=== PATIENT | female | born 1940 | race Caucasian/White ===

== ENCOUNTER 2017-09-13 08:38 | Inpatient (IN) | payer MEDICARE ==
[2017-09-13] MEDS ORDERED: PANTOPRAZOLE 40 MG/10 ML VIAL IVP STA (08:55)
[2017-09-13 09:16] LABS: Anisocytosis Slight; Basophils % (A) 0 %; Eosinophils # (A) 0.1 k/uL (0-0.7); Eosinophils % (A) 1 %; Hypochromasia Moderate; Lymphocytes # (A) 0.7 k/uL (1.0-4.8); Lymphocytes % (A) 8 %; MCH 24.5 pg (25.0-35.0); Mean Platelet Volume 6.7; Microcytosis Slight; Monocytes # (A) 0.5 k/uL (0-1.0); Monocytes % (A) 6 %; Neutrophils # (A) 7.6 k/uL (1.3-7.7); Neutrophils % (A) 84 %; Platelet Count 593 k/uL (150-450); Poikilocytosis Slight; RBC 2.19 m/uL (3.80-5.40); RDW 19.9 % (11.5-15.5); WBC 9.1 k/uL (3.8-10.6)
--- NOTE | 2017-09-13 09:21 | ED ---
General Adult HPI - General Chief complaint: GI Bleed Stated complaint: Black Stool Time Seen by Provider: 09/13/17 08:51 Source: patient, family, RN notes reviewed Mode of arrival: wheelchair Limitations: no limitations - History of Present Illness Initial comments: Patient is a pleasant 77-year-old female presenting to the emergency department with dark stool. Patient had 2 episodes yesterday and another episode this morning. Patient has been fatigued and generally weak. Patient has been somewhat short of breath. Patient does have a history of similar episode around 4 years ago associated with ulcer. Patient received blood transfusion at that time. No abdominal pain. No fever. - Related Data Home Medications Medication Instructions Recorded Confirmed Lisinopril-Hctz 20-25 mg 1 tab PO DAILY 04/07/14 09/13/17 [Zestoretic 20-25] rOPINIRole HCL [Requip] 2 mg PO HS 04/07/14 09/13/17 Aspirin [Adult Low Dose Aspirin EC] 81 mg PO DAILY PRN 09/13/17 09/13/17 Calcium Carbonate [Calcium] 600 mg PO DAILY 09/13/17 09/13/17 Multivitamins, Thera [Multivitamin 1 tab PO DAILY 09/13/17 09/13/17 (formulary)] Allergies Allergy/AdvReac Type Severity Reaction Status Date / Time Penicillins Allergy Unknown Verified 09/13/17 09:03 Review of Systems ROS Statement: Those systems with pertinent positive or pertinent negative responses have been documented in the HPI. ROS Other: All systems not noted in ROS Statement are negative. Constitutional: Denies: fever, chills Eyes: Denies: eye pain ENT: Denies: ear pain Respiratory: Denies: cough Cardiovascular: Denies: chest pain Endocrine: Reports: fatigue Gastrointestinal: Reports: melena. Denies: abdominal pain Genitourinary: Denies: dysuria Musculoskeletal: Denies: back pain Skin: Denies: rash Neurological: Denies: headache Past Medical History Past Medical History: Blood Disorder, Hypertension, Vascular Disorder Additional Past Medical History / Comment(s): anemia and vericose veins History of Any Multi-Drug Resistant Organisms: None Reported Past Surgical History: No Surgical Hx Reported Past Anesthesia/Blood Transfusion Reactions: No Reported Reaction Past Psychological History: Anxiety Smoking Status: Former smoker Past Alcohol Use History: Occasional Past Drug Use History: None Reported General Exam Limitations: no limitations General appearance: alert, in no apparent distress Head exam: Present: atraumatic Eye exam: Present: normal appearance, PERRL ENT exam: Present: normal oropharynx Neck exam: Present: normal inspection Respiratory exam: Present: normal lung sounds bilaterally Cardiovascular Exam: Present: regular rate, normal rhythm GI/Abdominal exam: Present: soft. Absent: distended, tenderness Rectal exam: Present: black stool (RN Gia is present) Extremities exam: Present: normal inspection Neurological exam: Present: alert Psychiatric exam: Present: normal affect, normal mood Skin exam: Present: normal color Course Vital Signs 09/13/17 09/13/17 08:40 09:19 Temperature 98.1 F Pulse Rate 105 H 72 Respiratory 20 16 Rate Blood Pressure 103/52 97/50 O2 Sat by Pulse 99 99 Oximetry EKG Findings - EKG Comments: EKG Findings:: Normal sinus rhythm 94. HI 168. QRS 1:30. QTC 416. QTC 520. Normal axis. Nonspecific intraventricular block. Q waves V1 and V2. Inferior Q waves. No acute ST change. Medical Decision Making - Medical Decision Making Patient reevaluated. Patient and family updated. Case discussed in detail with practitioner Ankit, who will admit for Dr. Moreno, covering for hospital call. Blood transfusion ordered. - Lab Data Result diagrams: 09/13/17 08:55 09/13/17 08:55 Lab Results 09/13/17 09/13/17 09/13/17 Range/Units 08:55 08:55 09:15 WBC 9.1 (3.8-10.6) k/uL RBC 2.19 L (3.80-5.40) m/uL Hgb 5.4 L* (11.4-16.0) gm/dL Hct 17.3 L* (34.0-46.0) % MCV 79.0 L (80.0-100.0) fL MCH 24.5 L (25.0-35.0) pg MCHC 31.0 (31.0-37.0) g/dL RDW 19.9 H (11.5-15.5) % Plt Count 593 H (150-450) k/uL Neutrophils % 84 % Lymphocytes % 8 % Monocytes % 6 % Eosinophils % 1 % Basophils % 0 % Neutrophils # 7.6 (1.3-7.7) k/uL Lymphocytes # 0.7 L (1.0-4.8) k/uL Monocytes # 0.5 (0-1.0) k/uL Eosinophils # 0.1 (0-0.7) k/uL Basophils # 0.0 (0-0.2) k/uL Manual Slide Review Performed Polychromasia Present Hypochromasia Moderate Poikilocytosis Slight Anisocytosis Slight Microcytosis Slight Spherocytes Present Sodium 138 (137-145) mmol/L Potassium 3.2 L (3.5-5.1) mmol/L Chloride 97 L (98-107) mmol/L Carbon Dioxide 27 (22-30) mmol/L Anion Gap 14 mmol/L BUN 16 (7-17) mg/dL Creatinine 0.62 (0.52-1.04) mg/dL Est GFR (CKD-EPI)AfAm >90 (>60 ml/min/1.73 sqM) Est GFR (CKD-EPI)NonAf 88 (>60 ml/min/1.73 sqM) Glucose 108 H (74-99) mg/dL Calcium 8.9 (8.4-10.2) mg/dL Total Bilirubin 0.3 (0.2-1.3) mg/dL AST 33 (14-36) U/L ALT 28 (9-52) U/L Alkaline Phosphatase 54 (38-126) U/L Total Protein 5.7 L (6.3-8.2) g/dL Albumin 3.5 (3.5-5.0) g/dL Stool Occult Blood Positive H (Negative) - Radiology Data Radiology results: image reviewed (Chest x-ray shows intrathoracic stomach otherwise no acute abnormality.) Critical Care Time Critical Care Time: Yes Total Critical Care Time: 33 Disposition Clinical Impression: Gastrointestinal hemorrhage Disposition: ADMITTED IP TO THIS [facility] Condition: Serious Is patient prescribed a controlled substance at d/c from ED?: No Referrals: Sugar Whalen DO [Primary Care Provider] - 1-2 days Decision Time: 09:50
[2017-09-13 09:25] LABS: ALT 28 U/L (9-52); AST 33 U/L (14-36); Albumin 3.5 g/dL (3.5-5.0); Alkaline Phosphatase 54 U/L (38-126); Anion Gap 14 mmol/L; Blood Urea Nitrogen 16 mg/dL (7-17); Calcium 8.9 mg/dL (8.4-10.2); Carbon Dioxide 27 mmol/L (22-30); Chloride 97 mmol/L (98-107); Glucose 108 mg/dL (74-99); Potassium 3.2 mmol/L (3.5-5.1); Sodium 138 mmol/L (137-145); Total Bilirubin 0.3 mg/dL (0.2-1.3); Total Protein 5.7 g/dL (6.3-8.2)
[2017-09-13 09:27] LABS: HCT 17.3 % (34.0-46.0)
[2017-09-13 09:28] LABS: HGB 5.4 gm/dL (11.4-16.0)
--- NOTE | 2017-09-13 09:35 | XR ---
EXAMINATION TYPE: XR chest 2V DATE OF EXAM: 09/13/2017 COMPARISON: NONE HISTORY: Shortness of breath and weakness for 5 days TECHNIQUE: Frontal and lateral views of the chest are obtained. FINDINGS: There is no focal air space opacity, pleural effusion, or pneumothorax seen. The stomach a ppears largely intrathoracic The cardiac silhouette size is enlarged. The osseous structures are in tact. Is generalized osseous demineralization, mild degenerative changes of the thoracic spine and mo derate acromioclavicular arthropathy. IMPRESSION: No acute cardiopulmonary process. Largely intrathoracic stomach.
[2017-09-13 09:40] LABS: Polychromasia Present
[2017-09-13 09:42] LABS: Spherocytes Present
[2017-09-13] MEDS ORDERED: NALOXONE 0.4 MG/ML 1 ML VIAL IV PRN (09:47)
[2017-09-13 09:48] LABS: Creatine Kinase MB 2.4 ng/mL (0.0-2.4); Prothrombin Time 9.7 sec (9.0-12.0)
[2017-09-13 09:51] LABS: Partial Thromboplastin Time 18.5 sec (22.0-30.0)
[2017-09-13 09:55] LABS: Troponin I 0.177 ng/mL (0.000-0.034)
[2017-09-13] MEDS: SODIUM CHLORIDE 0.9% 1,000 ML IV SCH (10:06)
[2017-09-13 10:27] LABS: Amorphous Sediment,Urine Rare /hpf; Appearance,Urine Cloudy (Clear); Bacteria,Urine Rare /hpf; Bilirubin,Urine Negative (Negative); Blood,Urine Negative (Negative); Color,Urine Yellow; Glucose,Urine (UA) Negative (Negative); Hyaline Casts,Urine 16 /lpf (0-2); Ketones,Urine Negative (Negative); Leukocyte Esterase,Urine Large (Negative); Mucus,Urine Rare /hpf; Nitrite,Urine Negative (Negative); Protein,Urine Trace (Negative); Specific Gravity,Urine 1.014 (1.001-1.035); Squamous Epithelial Cell,Urine 2 /hpf (0-4); WBC,Urine 18 /hpf (0-5)
[2017-09-13 10:48] VITALS: BMI 28.0
--- NOTE | 2017-09-13 12:24 | P.CONS ---
History of Present Illness - Reason for Consult Consult date: 09/13/17 GI bleed Requesting physician: Indira Moreno - History of Present Illness 77-year-old female with a past medical history of bleeding duodenal ulcer in 2013 presents with acute melena that started yesterday with associated fatigue weakness. She's had 3 to 4 black colored bowel movements since yesterday afternoon. Denies abdominal pain or coffee-ground emesis. Afebrile. Home medications include baby aspirin. She did take a dose of Aleve yesterday morning but does not take that medication on a daily basis. Last colonoscopy 2015 at [facility] to her memory was unremarkable. Admission hemoglobin 5.4. MCV 79. Platelet 593. White count 9.1. INR 1.0. BUN 16. Creatinine 0.6. She is scheduled to receive 2 units of blood today. Review of Systems Constitutional: Denies fever, chills, sweats, weight gain, or loss. Increased fatigue weakness. HEENT: Negative for migraines, blurred vision or loss, earaches, drainage, tinnitus, oral mucosal lesions, dysphagia, or odynophagia. CARDIAC: Negative for chest pain, arrhythmias, or palpitation. RESPIRATORY: Negative for shortness of breath, hemoptysis, cough, or sputum production. GI: See HPI for pertinent findings. : Negative for hematuria, urgency, frequency, polyuria, or dysuria. GYNc: Denies possibility of . Negative vaginal discharge. MUSCULOSKELETAL: Negative for muscle aches, swelling, arthritis, and arthralgias. NEUROLOGIC: Negative for stroke or TIA. ENDOCRINE: Negative for thyroid problems. SKIN: Negative for rash or itching. PSYCHIATRIC: Negative history for depression and anxiety Past Medical History Past Medical History: Blood Disorder, GI Bleed, Hypertension, Vascular Disorder Additional Past Medical History / Comment(s): anemia and vericose veins History of Any Multi-Drug Resistant Organisms: None Reported Past Surgical History: No Surgical Hx Reported Past Anesthesia/Blood Transfusion Reactions: No Reported Reaction Past Psychological History: Anxiety Smoking Status: Former smoker Past Alcohol Use History: Occasional Past Drug Use History: None Reported - Past Family History Mother Family Medical History: No Reported History Father Family Medical History: No Reported History Medications and Allergies Home Medications Medication Instructions Recorded Confirmed Type Lisinopril-Hctz 20-25 mg 1 tab PO DAILY 04/07/14 09/13/17 History [Zestoretic 20-25] rOPINIRole HCL [Requip] 2 mg PO HS 04/07/14 09/13/17 History Aspirin [Adult Low Dose Aspirin EC] 81 mg PO DAILY PRN 09/13/17 09/13/17 History Calcium Carbonate [Calcium] 600 mg PO DAILY 09/13/17 09/13/17 History Multivitamins, Thera [Multivitamin 1 tab PO DAILY 09/13/17 09/13/17 History (formulary)] Allergies Allergy/AdvReac Type Severity Reaction Status Date / Time Penicillins Allergy Unknown Verified 09/13/17 09:03 Physical Exam Vitals: Vital Signs Temp Pulse Pulse Resp BP BP Pulse Ox 09/13/17 12:00 98 F 121/66 09/13/17 10:45 91 17 111/56 100 09/13/17 10:09 90 16 130/59 99 09/13/17 09:50 85 L 09/13/17 09:19 72 16 97/50 99 09/13/17 08:40 98.1 F 105 H 20 103/52 99 Intake and Output 09/12/17 09/13/17 09/13/17 22:59 06:59 14:59 Intake Total 0 Balance 0 Intake: Blood Product 0 Rc As-1 Unit 0 [id number] Other: # Voids 1 Weight 76.657 kg General appearance: The patient is alert, oriented, in no acute distress. HET: Head is normocephalic and atraumatic. Pupils are equal and reactive. Oropharynx is clear without lesions. Neck: Supple without lymphadenopathy. Trachea midline. Heart: S1 S2. Regular rate and rhythm. Lungs: No crackles or wheezes are heard. Abdomen: Soft, nontender, nondistended with bowel sounds. No peritoneal signs. No palpable organomegaly or masses. Extremities: Normal skin color and turgor. No cyanosis, rash, ulceration, clubbing, or edema. Radial and pedal pulses are 2/4 bilaterally. Neurological: No focal deficits. Strength and sensation are grossly intact. Results CBC & Chem 7: 09/13/17 08:55 09/13/17 08:55 Labs: Abnormal Lab Results - Last 24 Hours (Table) 09/13/17 09/13/17 09/13/17 Range/Units 08:55 08:55 08:55 RBC 2.19 L (3.80-5.40) m/uL Hgb 5.4 L* (11.4-16.0) gm/dL Hct 17.3 L* (34.0-46.0) % MCV 79.0 L (80.0-100.0) fL MCH 24.5 L (25.0-35.0) pg RDW 19.9 H (11.5-15.5) % Plt Count 593 H (150-450) k/uL Lymphocytes # 0.7 L (1.0-4.8) k/uL APTT (22.0-30.0) sec Potassium 3.2 L (3.5-5.1) mmol/L Chloride 97 L (98-107) mmol/L Glucose 108 H (74-99) mg/dL Troponin I 0.177 H* (0.000-0.034) ng/mL Total Protein 5.7 L (6.3-8.2) g/dL Urine Appearance (Clear) Urine Protein (Negative) Ur Leukocyte Esterase (Negative) Urine WBC (0-5) /hpf Amorphous Sediment (None) /hpf Urine Bacteria (None) /hpf Hyaline Casts (0-2) /lpf Urine Mucus (None) /hpf Stool Occult Blood (Negative) Crossmatch 09/13/17 09/13/17 09/13/17 Range/Units 08:55 08:55 09:15 RBC (3.80-5.40) m/uL Hgb (11.4-16.0) gm/dL Hct (34.0-46.0) % MCV (80.0-100.0) fL MCH (25.0-35.0) pg RDW (11.5-15.5) % Plt Count (150-450) k/uL Lymphocytes # (1.0-4.8) k/uL APTT 18.5 L (22.0-30.0) sec Potassium (3.5-5.1) mmol/L Chloride (98-107) mmol/L Glucose (74-99) mg/dL Troponin I (0.000-0.034) ng/mL Total Protein (6.3-8.2) g/dL Urine Appearance (Clear) Urine Protein (Negative) Ur Leukocyte Esterase (Negative) Urine WBC (0-5) /hpf Amorphous Sediment (None) /hpf Urine Bacteria (None) /hpf Hyaline Casts (0-2) /lpf Urine Mucus (None) /hpf Stool Occult Blood Positive H (Negative) Crossmatch See Detail 09/13/17 Range/Units 09:55 RBC (3.80-5.40) m/uL Hgb (11.4-16.0) gm/dL Hct (34.0-46.0) % MCV (80.0-100.0) fL MCH (25.0-35.0) pg RDW (11.5-15.5) % Plt Count (150-450) k/uL Lymphocytes # (1.0-4.8) k/uL APTT (22.0-30.0) sec Potassium (3.5-5.1) mmol/L Chloride (98-107) mmol/L Glucose (74-99) mg/dL Troponin I (0.000-0.034) ng/mL Total Protein (6.3-8.2) g/dL Urine Appearance Cloudy H (Clear) Urine Protein Trace H (Negative) Ur Leukocyte Esterase Large H (Negative) Urine WBC 18 H (0-5) /hpf Amorphous Sediment Rare H (None) /hpf Urine Bacteria Rare H (None) /hpf Hyaline Casts 16 H (0-2) /lpf Urine Mucus Rare H (None) /hpf Stool Occult Blood (Negative) Crossmatch Assessment and Plan (1) Gastrointestinal hemorrhage Narrative/Plan: Acute symptomatic GI bleed with melena acute blood loss anemia history of bleeding duodenal ulcer 2013, colonoscopy 2016 reported by patient as normal. Current Visit: Yes Status: Acute Code(s): K92.2 - GASTROINTESTINAL HEMORRHAGE, UNSPECIFIED SNOMED Code(s): 28572801 (2) Acute blood loss anemia Current Visit: Yes Status: Acute Code(s): D62 - ACUTE POSTHEMORRHAGIC ANEMIA SNOMED Code(s): 319962857 (3) Melena Current Visit: Yes Status: Acute Code(s): K92.1 - MELENA SNOMED Code(s): 2398312 Plan: 1. Protonix 40 mg IV every 12 hours. Blood transfusion. 2. CBC every 6 hours. 3. EGD evaluation. 4. Clear liquid diet. Nothing by mouth after midnight. 5. Hold aspirin. The real estate utilization officer has discussed the risks, benefits and alternative therapies for the above-mentioned procedure and for both sedation/analgesia as well as necessary blood product administration, if indicated, as they pertain to this patient. The patient has indicated understanding and acceptance of the risks and procedures discussed. Thank you for this kind referral and the opportunity to participate in the care of your patient. This consultation was discussed with Dr. Phillips. The impression and plan of care have been directed as dictated.
[2017-09-13] MEDS ORDERED: ALPRAZolam 0.25 MG TAB PO PRN (15:50)
[2017-09-13] MEDS ORDERED: ACETAMINOPHEN TAB 500 MG TAB PO PRN (15:50)
--- NOTE | 2017-09-13 18:21 | HP ---
HISTORY AND PHYSICAL DATE OF SERVICE: 09/13/2017 CHIEF COMPLAINTS: Dark stool. HISTORY OF PRESENT ILLNESS: This 77-year-old woman with a past medical history of multiple medical problems including GI bleed, history of duodenal ulcers, hypertension, vascular disease, anemia, anxiety being followed by Dr. Sugar Houser in the outpatient setting was admitted with features of melenic stools, tarry stools. The patient hemoglobin is 5.4. The patient apparently had a duodenal ulcer in 2013 and because of increasing difficulty, the patient came to [facility] and was admitted for further evaluation and treatment. There is no history of fever, rigors. No history of headache, loss of consciousness or seizures. Patient had some memory issues according to the . PAST MEDICAL HISTORY: 1. History of GI bleed. 2. Duodenal ulcer. 3. Hypertension. 4. History of varicose veins. MEDICATIONS: Prior to admission include home medications are: 1. Requip 2 mg q.h.s. 2. Multivitamins 1 p.o. daily. 3. Zestril 10/25 p.o. daily. 4. Calcium 600 mg p.o. daily. 5. Ecotrin 81 mg daily p.r.n. ALLERGIES: PENICILLIN. FAMILY HISTORY: No history of heart disease or strokes in the family. SOCIAL HISTORY: Previous history of smoking. No history of current smoking or alcohol intake. REVIEW OF SYSTEMS: ENT: No diminished vision, no diminished hearing. Cardiovascular: As mentioned earlier. Respiratory: As mentioned earlier. GI: As mentioned earlier. : No dysuria. Nervous system: No numbness, weakness. Allergy/Immunology: No asthma or hayfever. Musculoskeletal as mentioned earlier. Hematology/Oncology: As mentioned earlier. Endocrine: No history of diabetes, hypothyroidism. Constitutional: As mentioned earlier. Dermatology: Negative. Rheumatology: Negative. Psychiatric: As mentioned earlier. PHYSICAL EXAMINATION: GENERAL: The patient is alert and oriented times three. VITAL SIGNS: Pulse 85, blood pressure 120/60, respirations 16, temperature 97.5, pulse ox 97% on room air. HEENT: Conjunctivae pale. Oral mucosa moist. NECK: No jugular venous distention. No carotid bruit. No lymph node enlargement. CARDIOVASCULAR: S1, S21 muffled. No S3, no S4. Ejection systolic murmur. RESPIRATORY: Breath sounds diminished in the bases. Scattered rhonchi. No crackles. ABDOMEN: Soft, nontender. No mass palpable. LEGS: No edema. No swelling. NERVOUS SYSTEM: Higher functions as mentioned earlier. Moves all four extremities. No focal deficits. LYMPHATICS: No lymph nodes palpable in the neck, axillae or groin. SKIN: No ulcer, rashes or bleeding. LAB STUDIES: WBC 9.1 and hemoglobin is 5.4, platelets are 593. Sodium 130, potassium 3.2. Troponin 0.177. UA possible UTI. Stool OB is positive. ASSESSMENT: 1. Acute gastrointestinal bleeding with acute blood loss anemia. 2. Troponin 0.177, rule out acute coronary syndrome, acute non ST-segment myocardial infarction. 3. Increased platelets. 4. History of duodenal ulcer. 5. Hypokalemia. 6. Possible urinary tract infection. 7. History of hypertension. 8. History of varicose veins. 9. Anxiety. 10.Remote history of nicotine dependence. 11.Memory impairment. RECOMMENDATIONS AND DISCUSSION: In this 77-year-old woman who presented with multiple complex medical issues at this time I recommend to continue current medications, management and symptomatic treatment. We will hold off and antiplatelet agents and as well as aspirin. Transfusion has been arranged. We will repeat hemoglobin. Resume the home medications and we will also continue with proton pump inhibitors. DVT prophylaxis. Closely follow with Gastroenterology and as well as closely follow with multiple consultants and cardiology consultation also has been requested and further recommendations to follow. Copy of dictation forwarded to Dr. Sugar Houser who is the primary care physician. MMNICOL / BUTCHN: [id number] /
--- NOTE | 2017-09-13 18:22 | P.CNNES ---
History of Present Illness Consult date: 09/13/17 Reason for Consult: Patient admitted with GI Bleed and confusion. History of Present Illness: This patient is a 77-year-old right-handed white female who was admitted to Hospital today with symptoms of increased generalized weakness and fatigue. Patient apparently was passing dark stool at home and had 2 episodes yesterday as well. She was brought into the emergency room today for further evaluation of acute GI bleeding. She was seen in the emergency room by Dr. Sal. Her admission diagnosis was acute gastrointestinal hemorrhage. Patient apparently has a history of peptic ulcer disease and bleeding duodenal ulcer in 2013. She was admitted to the hospital today for further evaluation and is to be seen by gastroenterology. She underwent a colonoscopy in 2015 which was unremarkable. Apparently she is to be scheduled for EGD procedure tomorrow to further evaluate her known history of duodenal ulcer. Her hemoglobin on admission was very low at 5.4. She did receive 2 units of packed red cells. Repeat hemoglobin is to be done tomorrow morning. Apparently her had mentioned to the admitting physician Dr. Moreno that he has been concerned as a patient shows evidence of slowly progressive memory loss and confusion. This is been noted by him over the past 1 year. This was related to Dr. Moreno was requested neurology consultation for further assessment. We did explain to the patient why we were consulted today to see her. She is seemed to be very upset stating that she has been doing well and is not sure why her is concerned with the memory loss and confusion. She apparently refused to have a computed tomography scan of the brain done earlier today as was recommended by Dr. Moreno. We have explained to the patient that it would be helpful to establish baseline evaluation for memory problems and confusion. She finally did agree after her really felt she should go for a CAT scan of the brain during this admission. As noted she is scheduled for EGD procedure tomorrow morning. The patient denies any previous history of head trauma or head injury. There is no strong family history of underlying Alzheimer's dementia. She has been able to function at home independently and is not requiring any extra help at this time. She has been undergoing yearly physicals and apparently all of her test results over the years have been clearly within normal range. Her is the main catalyst for further assessment for her episodes of confusion. We did explain that a CAT scan would be a very good neuroimaging study to have for future reference in case there was changes in her memory or cognitive functioning over the years. The patient finally conceded and stated that she would arrange for CT of the brain to be done later today and is given her permission. Neurology is now been consulted for further evaluation and recommendations. Review of Systems Constitutional: Denies chills, Denies fever Eyes: denies blurred vision, denies pain Ears, nose, mouth and throat: Denies headache, Denies sore throat Cardiovascular: Denies chest pain, Denies shortness of breath Respiratory: Denies cough Gastrointestinal: Reports melena, Denies abdominal pain, Denies diarrhea, Denies nausea, Denies vomiting Genitourinary: Denies dysuria, Denies hematuria Musculoskeletal: Denies myalgias Integumentary: Denies pruritus, Denies rash Neurological: Reports confusion, Reports memory loss, Denies numbness, Denies weakness Psychiatric: Denies anxiety, Denies depression Endocrine: Denies fatigue, Denies weight change Past Medical History Past Medical History: Blood Disorder, GI Bleed, Hypertension, Vascular Disorder Additional Past Medical History / Comment(s): anemia and vericose veins History of Any Multi-Drug Resistant Organisms: None Reported Past Surgical History: No Surgical Hx Reported Past Anesthesia/Blood Transfusion Reactions: No Reported Reaction Past Psychological History: Anxiety Smoking Status: Former smoker Past Alcohol Use History: Occasional Past Drug Use History: None Reported - Past Family History Mother Family Medical History: No Reported History Father Family Medical History: No Reported History Medications and Allergies Home Medications Medication Instructions Recorded Confirmed Type Lisinopril-Hctz 20-25 mg 1 tab PO DAILY 04/07/14 09/13/17 History [Zestoretic 20-25] rOPINIRole HCL [Requip] 2 mg PO HS 04/07/14 09/13/17 History Aspirin [Adult Low Dose Aspirin EC] 81 mg PO DAILY PRN 09/13/17 09/13/17 History Calcium Carbonate [Calcium] 600 mg PO DAILY 09/13/17 09/13/17 History Multivitamins, Thera [Multivitamin 1 tab PO DAILY 09/13/17 09/13/17 History (formulary)] Allergies Allergy/AdvReac Type Severity Reaction Status Date / Time Penicillins Allergy Unknown Verified 09/13/17 09:03 Physical Examination - Vital Signs Vital Signs: Vital Signs Temp Pulse Pulse Resp BP BP Pulse Ox 09/13/17 15:50 97.4 F L 124/60 09/13/17 15:35 91 17 09/13/17 15:06 97.5 F L 85 16 125/60 97 09/13/17 15:03 97.8 F 88 17 123/60 95 09/13/17 12:40 97.9 F 16 115/65 95 09/13/17 12:10 97.7 F 17 116/60 96 09/13/17 12:00 98 F 121/66 09/13/17 10:45 91 17 111/56 100 09/13/17 10:09 90 16 130/59 99 09/13/17 09:50 85 L 09/13/17 09:19 72 16 97/50 99 09/13/17 08:40 98.1 F 105 H 20 103/52 99 Intake and Output 09/13/17 09/13/17 09/13/17 06:59 14:59 22:59 Intake Total 486 0 Balance 486 0 Intake: Oral 486 Blood Product 0 0 Rc As-1 Unit 0 0 [id number] Rc As-1 Unit 0 [id number] Other: # Voids 1 Weight 76.657 kg - Constitutional General appearance: average body habitus, cooperative - EENT EENT: PERRL, mucous membranes moist - Respiratory Respiratory: lungs clear, normal breath sounds - Cardiovascular Cardiovascular: regular rate, normal S1, normal S2 Extremities: no peripheral edema bilaterally - Gastrointestinal Gastrointestinal: normoactive bowel sounds - Integumentary Integumentary: normal - Neurologic Cranial nerve examination: PERRL, EOMI, VFF, V1/V2/V3 grossly intact, face symmetric, tongue midline, intact gag reflex, intact corneal reflex, normal palatal elevation Speech examination: intact Sensorimotor examination: intact Motor examination - right side: 4/5: biceps, triceps, wrist flexion, wrist extension, assistant facility manager, hip flexors, knee extensors, dorsiflexion, toe extension (EHL) , plantarflexion Motor examination - left side: 4/5: biceps, triceps, wrist flexion, wrist extension, assistant facility manager, hip flexors, knee extensors, dorsiflexion, toe extension (EHL) , plantarflexion Detailed sensory examination: intact Reflex and gait examination: intact Reflexes: 1+: ankle, bicep, knee, tricep - Musculoskeletal Musculoskeletal: no pain - Psychiatric Psychiatric: mood/affect appropriate, cooperative Results - Laboratory Findings CBC and BMP: 09/13/17 08:55 09/13/17 08:55 Abnormal Lab Findings: Abnormal Labs 09/13/17 09/13/17 09/13/17 08:55 08:55 08:55 RBC 2.19 L Hgb 5.4 L* Hct 17.3 L* MCV 79.0 L MCH 24.5 L RDW 19.9 H Plt Count 593 H Lymphocytes # 0.7 L APTT Potassium 3.2 L Chloride 97 L Glucose 108 H Troponin I 0.177 H* Total Protein 5.7 L Urine Appearance Urine Protein Ur Leukocyte Esterase Urine WBC Amorphous Sediment Urine Bacteria Hyaline Casts Urine Mucus Stool Occult Blood Crossmatch 09/13/17 09/13/17 09/13/17 08:55 08:55 09:15 RBC Hgb Hct MCV MCH RDW Plt Count Lymphocytes # APTT 18.5 L Potassium Chloride Glucose Troponin I Total Protein Urine Appearance Urine Protein Ur Leukocyte Esterase Urine WBC Amorphous Sediment Urine Bacteria Hyaline Casts Urine Mucus Stool Occult Blood Positive H Crossmatch See Detail 09/13/17 09:55 RBC Hgb Hct MCV MCH RDW Plt Count Lymphocytes # APTT Potassium Chloride Glucose Troponin I Total Protein Urine Appearance Cloudy H Urine Protein Trace H Ur Leukocyte Esterase Large H Urine WBC 18 H Amorphous Sediment Rare H Urine Bacteria Rare H Hyaline Casts 16 H Urine Mucus Rare H Stool Occult Blood Crossmatch Assessment and Plan (1) Confusion Current Visit: Yes Status: Acute Code(s): R41.0 - DISORIENTATION, UNSPECIFIED SNOMED Code(s): 148955744 (2) Acute blood loss anemia Current Visit: Yes Status: Acute Code(s): D62 - ACUTE POSTHEMORRHAGIC ANEMIA SNOMED Code(s): 533701911 (3) Gastrointestinal hemorrhage Current Visit: Yes Status: Acute Code(s): K92.2 - GASTROINTESTINAL HEMORRHAGE, UNSPECIFIED SNOMED Code(s): 81451598 (4) Melena Current Visit: Yes Status: Acute Code(s): K92.1 - MELENA SNOMED Code(s): 2421885 Plan: This patient is a 77-year-old female who was admitted to hospital with acute GI bleeding. She has a history of coronal ulcer and bleeding in 2013. She was noted to have dark color stools at home and this was her reason for coming to the hospital. She is scheduled to undergo EGD procedure tomorrow. At the request of the patient's there was concern as a patient has demonstrated increasing symptoms of confusion at home. This is been ongoing over the past several months. We have performed her neurological examination for this patient which at this time is nonfocal. We have recommended a computed tomography scan of the brain without contrast as a baseline assessment and neuro imaging study for her. Initially the patient refused to have the CAT scan done. After talking to her and her at bedside and explaining the reasoning she states she will go ahead and we will try to schedule a CAT scan of the brain to be done later today. She otherwise has a nonfocal neurological exam. She was extremely fatigued on admission due to the severe anemia. She did receive 2 units of packed red blood cells. She is showing some improvement in her baseline hemoglobin today. Apparently the confusion has been intermittent but noticed by her over the last several months. There is no strong family history of underlying dementia of the Alzheimer's type. We will obtain a few laboratory tests for her as well. We will review the results of the CAT scan tomorrow with the patient and her and will received from there in terms of any further recommendations. Her overall prognosis at this time remains guarded. Time with Patient: Greater than 30
--- NOTE | 2017-09-13 19:41 | CT ---
EXAMINATION TYPE: CT brain wo con DATE OF EXAM: 09/13/2017 COMPARISON: NONE HISTORY: Confusion. CT DLP: 1019.5 mGycm Automated exposure control for dose reduction was used. FINDINGS: There is mild cerebral cortical atrophy. There is no mass effect nor midline shift. There is no sign of intracranial hemorrhage. The calvarium is intact. IMPRESSION: MILD ATROPHY. NO ACUTE INTRACRANIAL ABNORMALITY.
[2017-09-13] MEDS: PANTOPRAZOLE 40 MG/10 ML VIAL IV SCH (20:01)
[2017-09-13 20:40] LABS: Anisocytosis Slight; Basophils % (A) 1 %; Eosinophils # (A) 0.1 k/uL (0-0.7); Eosinophils % (A) 1 %; HCT 24.2 % (34.0-46.0); Hypochromasia Moderate; Lymphocytes # (A) 0.9 k/uL (1.0-4.8); Lymphocytes % (A) 12 %; MCHC 32.6 g/dL (31.0-37.0); MCV 79.8 fL (80.0-100.0); Mean Platelet Volume 6.7; Microcytosis Slight; Monocytes # (A) 0.7 k/uL (0-1.0); Monocytes % (A) 9 %; Neutrophils # (A) 5.7 k/uL (1.3-7.7); Neutrophils % (A) 74 %; Platelet Count 520 k/uL (150-450); Poikilocytosis Moderate; RBC 3.03 m/uL (3.80-5.40); RDW 18.3 % (11.5-15.5); WBC 7.6 k/uL (3.8-10.6)
[2017-09-13 20:55] LABS: HGB 7.9 gm/dL (11.4-16.0)
[2017-09-13 21:30] LABS: Polychromasia Present
[2017-09-13] MEDS: MELATONIN 3 MG TABLET PO SCH (21:33)
[2017-09-14] MEDS: SODIUM CHLORIDE 0.9% 1,000 ML IV SCH ×2 (00:48→16:28)
[2017-09-14 01:06] VITALS: RESP 16
[2017-09-14 06:48] LABS: Anisocytosis Slight; Basophils % (A) 1 %; Eosinophils # (A) 0.2 k/uL (0-0.7); Eosinophils % (A) 3 %; HCT 23.9 % (34.0-46.0); HGB 7.5 gm/dL (11.4-16.0); Hypochromasia Moderate; Lymphocytes % (A) 17 %; MCH 25.6 pg (25.0-35.0); MCHC 31.5 g/dL (31.0-37.0); MCV 81.2 fL (80.0-100.0); Mean Platelet Volume 6.7; Monocytes # (A) 0.4 k/uL (0-1.0); Monocytes % (A) 8 %; Neutrophils # (A) 3.9 k/uL (1.3-7.7); Neutrophils % (A) 67 %; Platelet Count 492 k/uL (150-450); Poikilocytosis Moderate; RBC 2.94 m/uL (3.80-5.40); RDW 18.2 % (11.5-15.5); WBC 5.7 k/uL (3.8-10.6)
[2017-09-14] MEDS ORDERED: Potassium Replacement Protocol 1 EACH MISC MISCELLANE PRN (08:21)
[2017-09-14] MEDS ORDERED: PANTOPRAZOLE 40 MG/10 ML VIAL IV SCH (09:00)
[2017-09-14] MEDS ORDERED: POTASSIUM CHLORIDE ER 20 MEQ TAB.ER PO SCH (09:00)
[2017-09-14] MEDS: PANTOPRAZOLE 40 MG/10 ML VIAL IV SCH ×2 (10:04→20:26)
--- NOTE | 2017-09-14 14:08 | P.PN ---
Subjective Progress Note Date: 09/14/17 This patient is a 77-year-old right-handed white female who was seen in neurology consultation yesterday for confusion. Patient was very reluctant to have any testing done stating that she has no confusion or memory problems. Her has been concerned as she has shown signs of confusion at home. She was able to complete a computed tomography scan of the brain yesterday which revealed mild atrophy. No acute intracranial abnormality was detected. We reviewed the results of the CAT scan today with the patient. She feels relieved. She is nothing by mouth at this time as she is awaiting to undergo a EGD procedure by gastroenterology this afternoon. We will continue close neurological follow-up with the patient. She may benefit from more extensive outpatient evaluation for mild confusion and can follow-up as outpatient in the neurology clinic. We will continue to monitor her condition closely during this admission. Objective - Vital Signs Vital signs: Vital Signs Temp 97 F L 09/14/17 12:38 Pulse 100 09/14/17 12:38 Resp 16 09/14/17 12:38 BP 162/74 09/14/17 12:38 Pulse Ox 95 09/14/17 12:38 Intake & Output 09/13/17 09/14/17 09/14/17 18:59 06:59 18:59 Intake Total 726 600 Balance 726 600 Weight 76.657 kg 84.2 kg Intake: Intake, IV Titration 600 Amount Sodium Chloride 0.9% 1, 600 000 ml @ 75 mls/hr IV . [id number] [facility] Rx#:[id number] Oral 726 Blood Product 0 Rc As-1 Unit 0 [id number] Rc As-1 Unit 0 [id number] Other: Voiding Method Toilet # Voids 1 2 1 - Exam Physical examination: PHYSICAL EXAMINATION: Patient is resting comfortably in bed. VITAL SIGNS: Blood pressure is [140/65]. Heart rate is [83]. Respiration is [16] . Temperature is [97.0]. HEENT: Head is atraumatic, neck is supple, there were no carotid bruits. CHEST: Lungs are clear to auscultation and percussion. CARDIAC: S1, S2 normal rate and rhythm. There is no murmur. ABDOMEN: Soft and nontender. Bowel sounds are present. EXTREMITIES: There is no pedal edema. Peripheral pulses are present. Neurological examination: Patient has a nonfocal neurological examination today. - Labs CBC & Chem 7: 09/14/17 06:14 09/14/17 06:14 Labs: Abnormal Lab Results - Last 24 Hours (Table) 09/13/17 09/13/17 09/14/17 Range/Units 08:55 19:58 06:14 RBC 3.03 L (3.80-5.40) m/uL Hgb 7.9 L D (11.4-16.0) gm/dL Hct 24.2 L (34.0-46.0) % MCV 79.8 L (80.0-100.0) fL RDW 18.3 H (11.5-15.5) % Plt Count 520 H (150-450) k/uL Lymphocytes # 0.9 L (1.0-4.8) k/uL Troponin I (0.000-0.034) ng/mL Vitamin B12 1589.0 H (200.0-944.0) pg/mL Crossmatch See Detail 09/14/17 09/14/17 Range/Units 06:14 12:03 RBC 2.94 L (3.80-5.40) m/uL Hgb 7.5 L (11.4-16.0) gm/dL Hct 23.9 L (34.0-46.0) % MCV (80.0-100.0) fL RDW 18.2 H (11.5-15.5) % Plt Count 492 H (150-450) k/uL Lymphocytes # (1.0-4.8) k/uL Troponin I 0.184 H* (0.000-0.034) ng/mL Vitamin B12 (200.0-944.0) pg/mL Crossmatch Assessment and Plan (1) Confusion Current Visit: Yes Status: Acute Code(s): R41.0 - DISORIENTATION, UNSPECIFIED SNOMED Code(s): 536983862 (2) Acute blood loss anemia Current Visit: Yes Status: Acute Code(s): D62 - ACUTE POSTHEMORRHAGIC ANEMIA SNOMED Code(s): 658899095 (3) Gastrointestinal hemorrhage Current Visit: Yes Status: Acute Code(s): K92.2 - GASTROINTESTINAL HEMORRHAGE, UNSPECIFIED SNOMED Code(s): 21958129 (4) Laura Current Visit: Yes Status: Acute Code(s): K92.1 - LAURA SNOMED Code(s): 8546414 Plan: This patient is a 77-year-old female who is seen in neurology consultation yesterday for evaluation of mild confusion. She was able to be convinced that it would be helpful to obtain a baseline neuroimaging study for her and she consented to have a CAT scan of the brain done yesterday. CAT scan of the brain was completed yesterday and reveals mild cerebral cortical atrophy. No acute intracranial abnormality was detected. We reviewed the results of the CAT scan today with the patient. If she wishes we can do further evaluation of mild cognitive impairment in the outpatient setting for her. She is awaiting to undergo EGD procedure this afternoon and we will await her test results. Her overall prognosis at this time remains guarded.
[2017-09-14] MEDS ORDERED: IV FLUID CONTINUATION 1,000 ML IV ONE (14:26)
[2017-09-14] MEDS ORDERED: PROPOFOL 10 MG/ML 20 ML VIAL IV ONE (14:31)
[2017-09-14] MEDS ORDERED: LIDOCAINE 1% INJ 10MG/ML (20 ML MDV) ONE (14:31)
--- NOTE | 2017-09-14 15:10 | P.PCN ---
Date of Procedure: 09/14/17 Procedure(s) Performed: Procedure: Esophagogastroduodenoscopy and biopsy. Preoperative diagnosis: GI bleeding and anemia. Postoperative diagnosis: 1. Moderately sized hiatal hernia with no obvious esophagitis or complicated reflux disease. 2. Mild antral gastritis. 3. Duodenal bulb ulcer not bleeding at the time of the exam and with no evidence of gastric outlet obstruction. 4. Biopsies obtained from the antrum to rule out H. pylori infection. Preparation and sedation: Was provided by anesthesia. Brief clinical history: The patient is a 77-year-old female with a past medical history of bleeding duodenal ulcer in 2013 who presented with acute melena that started the day prior to admission with associated fatigue weakness. She reported having had 3 to 4 black colored bowel movements since then. Denies abdominal pain or coffee-ground emesis. Afebrile. Home medications include baby aspirin. She did take a dose of Aleve the morning her symptoms started but does not take that medication on a daily basis. Last colonoscopy 2015 at [facility] was unremarkable as far as she remembers. Admission hemoglobin 5.4. MCV 79. Platelet 593. White count 9.1. INR 1.0. BUN 16. Creatinine 0.6. She received 2 units of packed cells. Her hemoglobin is around 7.5. She had no further bowel movements since admission. Other details are summarized in the history and physical and dictated consultation and progress notes. Procedure: With the patient on her left lateral decubitus position and after informed consent and adequate sedation, I passed the Olympus-GIF 160 video upper endoscope through the cricopharyngeus down the esophagus. GE junction was around 35 cm from the incisors and there was a moderately sized hiatal hernia with a sliding and paraesophageal component but there was no evidence of esophagitis or complicated reflux disease. The endoscope was then passed into the rest of the stomach which was insufflated with air and inspected in detail including the retroflex view in the cardia. There was some mottling and erythema in the antrum but no ulcers or erosions. Pyloric channel did not show any ulcers. Duodenal bulb showed a half to 2/3 inch ulcer crater covered with white exudate with no evidence of active bleeding or any dark protuberances, clots or oozing of blood. Post bulbar area and descending duodenum appeared healthy. I obtained biopsies from the antrum to rule out H. pylori infection then the endoscope was withdrawn. The patient tolerated the procedure well. Plan: The patient was reassured. Will await biopsy results. In the meantime we will continue PPI. Will allow liquid diet then advance as tolerated. We will continue to follow with you with interest.
[2017-09-14] MEDS: cefTRIAXone IN SWFI 1,000 MG/10 ML SYRINGE IVP SCH (16:27)
[2017-09-14] MEDS: LISINOPRIL-HCTZ 20-25 MG 1 EACH TAB PO SCH (16:28)
[2017-09-14] MEDS: MULTIVITAMINS, THERA 1 EACH TAB PO SCH (16:28)
--- NOTE | 2017-09-14 19:16 | PN ---
PROGRESS NOTE DATE OF SERVICE: 09/14/2017. INTERVAL HISTORY: This 77-year-old woman was admitted with acute gastrointestinal bleed with acute blood loss anemia, is being closely monitored at this time. The patient had endoscopy today which showed moderate-size hiatal hernia with no obvious esophagitis. Mild antral gastritis. Duodenal bulb ulcer. A biopsy was also taken. No chest pain. No palpitations. No fever. EXAM: GENERAL: Alert and oriented x3. Pulse is 100. Blood pressure 162/74, respirations 16, temperature 97 degrees, pulse ox 94% on room air. HEENT: Conjunctivae normal. NECK: No jugular venous distention. CARDIOVASCULAR: S1, S2 muffled. RESPIRATIONS: Breath sounds diminished in the bases. Scattered rhonchi and no crackles. ABDOMEN: Soft, nontender. Legs no edema. LABS: WBC 5.7, hemoglobin 7.5, troponin 0.184. UA noted UTI. ASSESSMENT: 1. Acute upper gastrointestinal bleeding with acute blood loss anemia, possibly from duodenal ulcer. 2. Status post EGD. 3. Troponin 0.177, rule out acute coronary syndrome, acute non ST-elevation myocardial infarction. 4. Increased platelets. 5. History of duodenal ulcer. 6. Hypokalemia. 7. Possible urinary tract infection. 8. History of hypertension. 9. History of varicose veins. 10.History of anxiety. 11.Remote history of nicotine dependence. 12.Memory impairment. RECOMMENDATIONS AND DISCUSSION: Recommend to continue current medications. Continue the proton inhibitors and continue with antibiotics. Follow up closely with Cardiology. Guarded prognosis. Further recommendations to follow.add margret. MMODL / IJN: [id number] / WOO
[2017-09-14] MEDS: MELATONIN 3 MG TABLET PO SCH (20:24)
[2017-09-14] MEDS: METOPROLOL TARTRATE 12.5 MG TAB PO SCH (22:02)
[2017-09-15] MEDS: SODIUM CHLORIDE 0.9% 1,000 ML IV SCH ×2 (01:17→12:03)
--- NOTE | 2017-09-15 03:31 | CONS ---
CONSULTATION Marisa Gutiérrez is a 77-year-old lady who has a history of hypertension, takes lisinopril hydrochlorothiazide, also takes an aspirin a day 81 mg strength and some Requip. She is a reasonably active lady and comes into the hospital feeling weak, tired, exhausted, had no energy. She was found to have a very low hemoglobin of less than 6.0 and received 2 units of packed RBCs and she feels better. Her initial troponin was slightly abnormal and, therefore, I was asked to see her. She has no chest pain. She had episodes of dark stools that has been going on for quite some time. Denies any chest pain or shortness of breath but complains of fatigue and lack of energy. PAST MEDICAL HISTORY: History of hypertension. She has no history of any prior myocardial infarction or CVA. No previous surgeries. ALLERGIES: PENICILLIN. MEDICATIONS: Lisinopril hydrochlorothiazide 20/25 one tab daily, aspirin 81 mg daily, multivitamins, and calcium supplements. LABORATORY DATA: Revealed a troponin of 0.184 and initial troponin was 0.177. Her TSH level was normal. Vitamin B12 was normal. Hemoglobin on arrival was 5.4 and she received 2 units of RBCs and then it went up to 7.9. EXAMINATION: Blood pressure is 150/70, pulse rate is 80 per minute regular. HEENT: Unremarkable. Fundus was not examined by me. NECK: Supple. There is no JVD. I do not hear a carotid bruit. There is no thyromegaly. HEART: Reveals S1, S2 with a short systolic murmur. LUNGS: Reveal bilateral decent air entry. Abdomen is soft. No tenderness or organomegaly. Lower extremities reveal palpable pulses. No edema. Central nervous system is normal. EKG revealed sinus mechanism with IVCD of LBBB type. No acute changes. Lab data suggests elevated troponins. IMPRESSION: 1. Severe anemia secondary to gastrointestinal blood loss with a hemoglobin of 5.7. 2. History of hypertension. 3. Elevated troponin of unclear etiology. RECOMMENDATIONS: I am recommending that we will do an echocardiogram to assess LV function and the additional troponin was also ordered and both of them are in the same range. I will review the echo once it is performed. Patient is also having a GI workup in the form of endoscopy to be performed today. I do not believe we are dealing with any acute ischemic syndrome but will look at echocardiogram to assess LV function and then make further recommendations. We will continue telemetry but no aggressive intervention necessary from a cardiac standpoint. I will see her. She will have upper endoscopy today. MMODL / IJN: [id number] /
[2017-09-15 06:25] VITALS: BP 104/56; PULSE 75; TEMP 98.3
[2017-09-15] MEDS: cefTRIAXone IN SWFI 1,000 MG/10 ML SYRINGE IVP SCH (07:57)
[2017-09-15] MEDS: METOPROLOL TARTRATE 12.5 MG TAB PO SCH (07:58)
[2017-09-15] MEDS: LISINOPRIL-HCTZ 20-25 MG 1 EACH TAB PO SCH (07:58)
[2017-09-15] MEDS: MULTIVITAMINS, THERA 1 EACH TAB PO SCH (07:58)
[2017-09-15] MEDS: PANTOPRAZOLE 40 MG/10 ML VIAL IV SCH (07:58)
[2017-09-15 08:23] LABS: Anisocytosis Slight; Basophils % (A) 1 %; Eosinophils # (A) 0.2 k/uL (0-0.7); Eosinophils % (A) 4 %; HCT 24.2 % (34.0-46.0); HGB 7.7 gm/dL (11.4-16.0); Hypochromasia Moderate; Lymphocytes # (A) 0.9 k/uL (1.0-4.8); Lymphocytes % (A) 16 %; MCH 26.3 pg (25.0-35.0); MCHC 31.7 g/dL (31.0-37.0); Mean Platelet Volume 6.7; Monocytes # (A) 0.4 k/uL (0-1.0); Monocytes % (A) 7 %; Neutrophils # (A) 3.8 k/uL (1.3-7.7); Neutrophils % (A) 69 %; Platelet Count 529 k/uL (150-450); Poikilocytosis Moderate; RBC 2.92 m/uL (3.80-5.40); WBC 5.5 k/uL (3.8-10.6)
--- NOTE | 2017-09-15 08:25 | ECHOF ---
Referral Reason:Elevated trop MEASUREMENTS -------- HEIGHT: 165.1 cm WEIGHT: 83.9 kg BP: 140/65 RVIDd: 2.4 cm (< 3.3) IVSd: 1.2 cm (0.6 - 1.1) LVIDd: 4.1 cm (3.9 - 5.3) LVPWd: 1.3 cm (0.6 - 1.1) IVSs: 1.6 cm LVIDs: 2.5 cm LVPWs: 1.6 cm LAESV Index (A-L): 30.17 ml/m Ao Diam: 2.8 cm (2.0 - 3.7) AV Cusp: 1.8 cm (1.5 - 2.6) LA Diam: 4.6 cm (2.7 - 3.8) MV E Donato: 0.86 m/s MV DecT: 346 ms MV A Donato: 1.30 m/s MV E/A Ratio: 0.66 AV maxP.93 mmHg AV meanP.42 mmHg RAP: 5.00 mmHg RVSP: 30.55 mmHg FINDINGS -------- Sinus rhythm. This was a technically adequate study. The left ventricular size is normal. There is mild concentric left ventricular hypertrophy. Overa ll left ventricular systolic function is normal with, an EF between 60 - 65 %. The right ventricle is normal in size and function. LA is midly dilated 29-33ml/m2. RA appears enlarged. Aortic valve is trileaflet and is mildly thickened. Trace amount of aortic regurgitation. There is no evidence of aortic stenosis. The mitral valve leaflets are mildly thickened. There is trace to mild mitral regurgitation. Trace tricuspid regurgitation present. Right ventricular systolic pressure is normal at < 35 mmHg. There is no evidence of pulmonary hypertension. The pulmonic valve was not well visualized. The aortic root size is normal. Normal inferior vena cava with normal inspiratory collapse consistent with estimated right atrial pre ssure of 5 mmHg. There is no pericardial effusion. CONCLUSIONS -------- 1. Sinus rhythm. 2. This was a technically adequate study. 3. The left ventricular size is normal. 4. There is mild concentric left ventricular hypertrophy. 5. Overall left ventricular systolic function is normal with, an EF between 60 - 65 %. 6. LA is midly dilated 29-33ml/m2. 7. RA appears enlarged. 8. Aortic valve is trileaflet and is mildly thickened. 9. Trace amount of aortic regurgitation. 10. The mitral valve leaflets are mildly thickened. 11. There is trace to mild mitral regurgitation. 12. Trace tricuspid regurgitation present. 13. Right ventricular systolic pressure is normal at < 35 mmHg. 14. There is no evidence of pulmonary hypertension. 15. The pulmonic valve was not well visualized. 16. The aortic root size is normal. 17. There is no pericardial effusion. WORK FROM HOME: Zen Villafuerte RDCS
--- NOTE | 2017-09-16 08:24 | DS ---
DISCHARGE SUMMARY FINAL DIAGNOSES: 1. Acute upper gastrointestinal bleeding with acute blood loss anemia, possibly from duodenal ulcer. 2. Status post EGD. 3. Troponin 0.177. 4. Myocardial infarction likely per Cardiology. 5. Increased platelets. 6. History of duodenal ulcer. 7. Hypokalemia. 8. UTI. 9. History of hypertension. 10.History of a varicose veins. 11.History of anxiety. 12.Remote history of nicotine dependence. 13.Memory impairment. DISCHARGE DISPOSITION: The patient discharged home with guarded prognosis. TOTAL TIME TAKEN: 35 minutes. The patient discharged Cardiology. HISTORY OF PRESENT ILLNESS: This 77-year-old woman with past medical history of acute upper gastrointestinal bleeding. The patient also had a EGD showed a duodenal ulcer. The hemoglobin was around 7.7 and today it was 5.4 and the patient is multiple transfused. The patient also had elevated troponin and Cardiology recommended outpatient followup. On exam the vital signs are stable. CARDIOLOGY: S1, S2. ABDOMEN: Soft. DIET: Cardiac, bland and no coffee, tea, juice, pop. FOLLOWUP: Followup with Dr. Gimenez, PCP and followup with Dr. Phillips as advised. MEDICATIONS: 1. Tylenol 500 mg q.6h p.r.n. 2. Aspirin. No NSAIDs. 3. Calcium 600 mg p.o. daily. 4. Ceftin 500 mg p.o. b.i.d. 5. Zestoretic 120/25 p.o. daily. 6. Lopressor 12.5 mg p.o. b.i.d. 7. Multivitamins. 8. Protonix 40 mg p.o. b.i.d. 9. Requip 2 mg q.h.s. 10.Carafate 1 g b.i.d. MMODL / IJN: [id number] / MTDD
== END 2017-09-15 14:23 | disposition home or self-care (01) | DRG 377 ==
LOC: EC 08:38 → 6SEL 09:47 → 4MS4W 09-14 18:46
PROVIDERS: ADMIT Hospitalist; ATTEND Hospitalist
PROC: 30233N1 Transfusion of Nonautologous Red Blood Cells into Peripheral Vein, Percutaneous Approach (ICD-10-PCS; 2017-09-13)
PROC: 0DB78ZX Excision of Stomach, Pylorus, Via Natural or Artificial Opening Endoscopic, Diagnostic (ICD-10-PCS; principal; 2017-09-14 12:30)
DX: K26.4 Chronic or unspecified duodenal ulcer with hemorrhage (principal); I21.4 Non-ST elevation (NSTEMI) myocardial infarction; D62 Acute posthemorrhagic anemia; N39.0 Urinary tract infection, site not specified; K44.9 Diaphragmatic hernia without obstruction or gangrene; E87.6 Hypokalemia; F41.9 Anxiety disorder, unspecified; I10 Essential (primary) hypertension; K29.60 Other gastritis without bleeding; Z79.82 Long term (current) use of aspirin; Z87.11 Personal history of peptic ulcer disease; Z87.891 Personal history of nicotine dependence; Z88.0 Allergy status to penicillin; D47.3 Essential (hemorrhagic) thrombocythemia; R41.3 Other amnesia; Z79.899 Other long term (current) drug therapy; Z86.79 Personal history of other diseases of the circulatory system
CPT/HCPCS: 36415; 43239; 70450; 71046; 80053; 81001; 82272; 82550; 82553; 82607; 84132; 84443; 84484; 85025; 85610; 85730; 86850; 86900; 86901; 86920; 88305; 93005; 93306; 96374; 99291

== ENCOUNTER 2019-11-08 16:22 | Inpatient (IN) | payer MEDICARE ==
--- NOTE | 2019-11-08 16:34 | ED ---
General Adult HPI - General Chief complaint: Weakness Stated complaint: altered Time Seen by Provider: 11/08/19 16:30 Source: patient, EMS Mode of arrival: EMS Limitations: no limitations - History of Present Illness Initial comments: Patient presents the ED by ambulance for evaluation. Per EMS, his patient's family reported that the patient has been generally weak today, and she was having trouble getting off the toilet on her own. Per EMS, it was reported that the patient was unsteady well walking back from the bathroom, so family laid the patient on the floor. There was no trauma or injury per EMS. Patient reports feeling generally weak and "not well". Patient denies having any other symptoms or complaints. Patient denies having any pain, fever or chills, headache, focal numbness/weakness/neuro deficit, visual changes, speech difficulty, chest pain, dyspnea, palpitations, syncope, abdominal pain, nausea/vomiting/diarrhea, bloody or melanotic stool, dysuria or urinary symptoms, or any other symptoms or complaints. - Related Data Home Medications Medication Instructions Recorded Confirmed Lisinopril-Hctz 20-25 mg 1 tab PO DAILY 04/07/14 09/13/17 [Zestoretic 20-25] rOPINIRole HCL [Requip] 2 mg PO HS 04/07/14 09/13/17 Calcium Carbonate [Calcium] 600 mg PO DAILY 09/13/17 09/13/17 Multivitamins, Thera [Multivitamin 1 tab PO DAILY 09/13/17 09/13/17 (formulary)] Previous Rx's Medication Instructions Recorded Acetaminophen Tab [Tylenol] 500 mg PO Q6HR PRN tab 09/15/17 Cefuroxime Axetil [Ceftin] 500 mg PO BID #6 tab 09/15/17 Metoprolol Tartrate [Lopressor] 12.5 mg PO BID #60 tab 09/15/17 Pantoprazole Sodium [Protonix] 40 mg PO BID #60 tablet. 09/15/17 Sucralfate [Carafate] 1 gm PO ACHS #120 tablet 09/15/17 Allergies Allergy/AdvReac Type Severity Reaction Status Date / Time Penicillins Allergy Unknown Verified 09/13/17 09:03 Review of Systems ROS Statement: Those systems with pertinent positive or pertinent negative responses have been documented in the HPI. ROS Other: All systems not noted in ROS Statement are negative. Past Medical History Past Medical History: Blood Disorder, GI Bleed, Hypertension, Vascular Disorder Additional Past Medical History / Comment(s): anemia and vericose veins History of Any Multi-Drug Resistant Organisms: None Reported Past Surgical History: No Surgical Hx Reported Past Anesthesia/Blood Transfusion Reactions: No Reported Reaction Past Psychological History: Anxiety Past Alcohol Use History: Occasional Past Drug Use History: None Reported - Past Family History Mother Family Medical History: No Reported History Father Family Medical History: No Reported History General Exam Limitations: no limitations General appearance: alert, in no apparent distress Head exam: Present: atraumatic, normocephalic Eye exam: Present: normal appearance, PERRL, EOMI ENT exam: Present: mucous membranes dry Neck exam: Present: other (Trachea is in midline). Absent: tenderness, meningismus Respiratory exam: Present: normal lung sounds bilaterally. Absent: respiratory distress, wheezes, rales, rhonchi Cardiovascular Exam: Present: regular rate, normal rhythm, normal heart sounds, other (Normal radial pulses bilaterally) GI/Abdominal exam: Present: soft. Absent: distended, tenderness, guarding Extremities exam: Absent: tenderness, pedal edema, calf tenderness Back exam: Absent: tenderness Neurological exam: Present: alert, CN II-XII intact, other (Patient is oriented to person and place, but not to time). Absent: motor sensory deficit Psychiatric exam: Present: normal affect Skin exam: Present: warm, dry, intact, normal color, other (mulitple soft tissue masses of varying sizes are noted along the patient's body) Course Vital Signs 11/08/19 11/08/19 11/08/19 16:27 17:46 18:28 Temperature 98.7 F Pulse Rate 93 81 71 Respiratory 18 18 18 Rate Blood Pressure 101/58 104/68 126/69 O2 Sat by Pulse 89 L 98 95 Oximetry 11/08/19 18:34 Temperature Pulse Rate 73 Respiratory 18 Rate Blood Pressure 122/94 O2 Sat by Pulse 92 L Oximetry - Reevaluation(s) Reevaluation #1: 11/08/19 19:23 Case, H&P, test results and ED management thus far were discussed with Dr. Parnell. He accepts hospital floor admission. He has no further recommendations at this time. 11/08/19 19:29 Patient remains alert and breathing comfortably. Patient denies development of any new symptoms while in the ED. Patient is aware of her test results and need for hospital admission. EKG Findings - EKG Comments: EKG Findings:: Normal sinus rhythm, ventricular rate of 90 bpm, no ectopy, left bundle branch block, normal MD interval Medical Decision Making - Medical Decision Making I suspect that the patient's weakness is likely secondary to her metabolic/electrolyte disturbances. Patient's head CT shows no acute intracranial abnormality. Patient's troponin is minimally elevated, but she denies having any chest pain or dyspnea. Will admit the patient to the hospital for further evaluation, monitoring and treatment. Dr. Parnell has accepted hospital admission. - Lab Data Result diagrams: 11/08/19 17:00 11/08/19 18:21 Lab Results 11/08/19 11/08/19 11/08/19 Range/Units 17:00 17:00 17:00 WBC 8.4 (3.8-10.6) k/uL RBC 4.54 (3.80-5.40) m/uL Hgb 12.9 (11.4-16.0) gm/dL Hct 38.2 (34.0-46.0) % MCV 84.2 (80.0-100.0) fL MCH 28.5 (25.0-35.0) pg MCHC 33.8 (31.0-37.0) g/dL RDW 16.5 H (11.5-15.5) % Plt Count 397 (150-450) k/uL Neutrophils % 85 % Lymphocytes % 3 % Monocytes % 9 % Eosinophils % 1 % Basophils % 1 % Neutrophils # 7.2 (1.3-7.7) k/uL Lymphocytes # 0.3 L (1.0-4.8) k/uL Monocytes # 0.7 (0-1.0) k/uL Eosinophils # 0.0 (0-0.7) k/uL Basophils # 0.0 (0-0.2) k/uL Anisocytosis Slight PT 11.5 (9.0-12.0) sec INR 1.1 (<1.2) APTT 22.0 (22.0-30.0) sec Sodium (137-145) mmol/L Potassium (3.5-5.1) mmol/L Chloride (98-107) mmol/L Carbon Dioxide (22-30) mmol/L Anion Gap mmol/L BUN (7-17) mg/dL Creatinine (0.52-1.04) mg/dL Est GFR (CKD-EPI)AfAm (>60 ml/min/1.73 sqM) Est GFR (CKD-EPI)NonAf (>60 ml/min/1.73 sqM) Glucose (74-99) mg/dL Lactic Ac Sepsis Rflx Plasma Lactic Acid Wilber 3.5 H* (0.7-2.0) mmol/L Calcium (8.4-10.2) mg/dL Magnesium (1.6-2.3) mg/dL Total Bilirubin (0.2-1.3) mg/dL AST (14-36) U/L ALT (4-34) U/L Alkaline Phosphatase (38-126) U/L Troponin I (0.000-0.034) ng/mL NT-Pro-B Natriuret Pep pg/mL Total Protein (6.3-8.2) g/dL Albumin (3.5-5.0) g/dL TSH (0.465-4.680) mIU/L 11/08/19 11/08/19 11/08/19 Range/Units 17:00 17:27 18:21 WBC (3.8-10.6) k/uL RBC (3.80-5.40) m/uL Hgb (11.4-16.0) gm/dL Hct (34.0-46.0) % MCV (80.0-100.0) fL MCH (25.0-35.0) pg MCHC (31.0-37.0) g/dL RDW (11.5-15.5) % Plt Count (150-450) k/uL Neutrophils % % Lymphocytes % % Monocytes % % Eosinophils % % Basophils % % Neutrophils # (1.3-7.7) k/uL Lymphocytes # (1.0-4.8) k/uL Monocytes # (0-1.0) k/uL Eosinophils # (0-0.7) k/uL Basophils # (0-0.2) k/uL Anisocytosis PT (9.0-12.0) sec INR (<1.2) APTT (22.0-30.0) sec Sodium 129 L (137-145) mmol/L Potassium 2.1 L* (3.5-5.1) mmol/L Chloride 74 L* (98-107) mmol/L Carbon Dioxide 47 H* (22-30) mmol/L Anion Gap 8 mmol/L BUN 16 (7-17) mg/dL Creatinine 0.36 L (0.52-1.04) mg/dL Est GFR (CKD-EPI)AfAm >90 (>60 ml/min/1.73 sqM) Est GFR (CKD-EPI)NonAf >90 (>60 ml/min/1.73 sqM) Glucose 107 H (74-99) mg/dL Lactic Ac Sepsis Rflx Y Plasma Lactic Acid Wilber (0.7-2.0) mmol/L Calcium 7.0 L (8.4-10.2) mg/dL Magnesium 1.5 L (1.6-2.3) mg/dL Total Bilirubin 1.3 (0.2-1.3) mg/dL AST 33 (14-36) U/L ALT 10 (4-34) U/L Alkaline Phosphatase 87 (38-126) U/L Troponin I 0.118 H* (0.000-0.034) ng/mL NT-Pro-B Natriuret Pep pg/mL Total Protein 4.9 L (6.3-8.2) g/dL Albumin 2.6 L (3.5-5.0) g/dL TSH 0.904 (0.465-4.680) mIU/L 11/08/19 Range/Units 18:21 WBC (3.8-10.6) k/uL RBC (3.80-5.40) m/uL Hgb (11.4-16.0) gm/dL Hct (34.0-46.0) % MCV (80.0-100.0) fL MCH (25.0-35.0) pg MCHC (31.0-37.0) g/dL RDW (11.5-15.5) % Plt Count (150-450) k/uL Neutrophils % % Lymphocytes % % Monocytes % % Eosinophils % % Basophils % % Neutrophils # (1.3-7.7) k/uL Lymphocytes # (1.0-4.8) k/uL Monocytes # (0-1.0) k/uL Eosinophils # (0-0.7) k/uL Basophils # (0-0.2) k/uL Anisocytosis PT (9.0-12.0) sec INR (<1.2) APTT (22.0-30.0) sec Sodium (137-145) mmol/L Potassium (3.5-5.1) mmol/L Chloride (98-107) mmol/L Carbon Dioxide (22-30) mmol/L Anion Gap mmol/L BUN (7-17) mg/dL Creatinine (0.52-1.04) mg/dL Est GFR (CKD-EPI)AfAm (>60 ml/min/1.73 sqM) Est GFR (CKD-EPI)NonAf (>60 ml/min/1.73 sqM) Glucose (74-99) mg/dL Lactic Ac Sepsis Rflx Plasma Lactic Acid Wilber (0.7-2.0) mmol/L Calcium (8.4-10.2) mg/dL Magnesium (1.6-2.3) mg/dL Total Bilirubin (0.2-1.3) mg/dL AST (14-36) U/L ALT (4-34) U/L Alkaline Phosphatase (38-126) U/L Troponin I (0.000-0.034) ng/mL NT-Pro-B Natriuret Pep 1710 pg/mL Total Protein (6.3-8.2) g/dL Albumin (3.5-5.0) g/dL TSH (0.465-4.680) mIU/L - Radiology Data Radiology results: report reviewed (Noncontrast CT head: no acute intracranial abnormality; focal soft tissue scalp thickening measuring 2.9 x 2.7 x 2.8 cm along the left posterior vertex; chest x-ray shows COPD and underlying hiatal hernia, no definite acute process) Disposition Clinical Impression: Weakness generalized, Elevated troponin, Hypokalemia, Hypomagnesemia Disposition: ADMITTED IP TO THIS [facility] Condition: Stable Is patient prescribed a controlled substance at d/c from ED?: No Time of Disposition: 19:24
[2019-11-08] MEDS ORDERED: SODIUM CHLORIDE 0.9% 500 ML 500 ML IV STA (16:48)
[2019-11-08 17:18] LABS: Anisocytosis Slight; Basophils % (A) 1 %; Eosinophils % (A) 1 %; HCT 38.2 % (34.0-46.0); HGB 12.9 gm/dL (11.4-16.0); Lymphocytes # (A) 0.3 k/uL (1.0-4.8); Lymphocytes % (A) 3 %; MCH 28.5 pg (25.0-35.0); MCHC 33.8 g/dL (31.0-37.0); MCV 84.2 fL (80.0-100.0); Mean Platelet Volume 6.6; Monocytes # (A) 0.7 k/uL (0-1.0); Monocytes % (A) 9 %; Neutrophils # (A) 7.2 k/uL (1.3-7.7); Neutrophils % (A) 85 %; Platelet Count 397 k/uL (150-450); RBC 4.54 m/uL (3.80-5.40); RDW 16.5 % (11.5-15.5); WBC 8.4 k/uL (3.8-10.6)
[2019-11-08 17:31] LABS: INR 1.1 (<1.2); Prothrombin Time 11.5 sec (9.0-12.0)
[2019-11-08] MEDS ORDERED: SODIUM CHLORIDE 0.9% 500 ML 500 ML IV ONE (17:42)
--- NOTE | 2019-11-08 18:14 | CT ---
EXAMINATION TYPE: CT brain wo con DATE OF EXAM: 11/08/2019 COMPARISON: 09/13/2017 HISTORY: 79-year-old female weakness TECHNIQUE: Examination was done in axial plane without intravenous contrast. Coronal and sagittal r econstructions performed. CT DLP: 1076.4 mGycm Automated exposure control for dose reduction was used. FINDINGS: There is no evidence of acute intracranial hemorrhage, acute ischemic changes, mass, mass-effect, or extra-axial fluid collection. There is no effacement of cerebral sulci or basal subarachnoid cister ns. There is no hydrocephalus. There is no midline shift. Guzmán-white matter distinction is preserv ed. Mild cerebral cortical volume loss may have slightly progressed from 2018. Paranasal sinuses and mastoid air cells well pneumatized. Orbits and globes are intact. There is focal scalp thickening along the left posterior vertex measuring up to 2.7 x 2.9 x 0.8 cm no t clearly seen on the patient's 2018 exam. IMPRESSION: 1. No acute intracranial abnormality seen. 2. Focal soft tissue scalp thickening measuring 2.9 x 2.7 x 2.8 cm along the left posterior vertex. T his was not seen on 2018. Correlate with physical exam findings to exclude a neoplastic or infectious process.
[2019-11-08] MEDS ORDERED: ASPIRIN 81 MG PO STA (18:23)
--- NOTE | 2019-11-08 18:28 | XR ---
EXAMINATION TYPE: XR chest 2V DATE OF EXAM: 11/08/2019 COMPARISON: 09/13/2017 HISTORY: 79-year-old female with confusion, altered mental status, weakness TECHNIQUE: AP and lateral views FINDINGS: Heart normal size. Retrocardiac density suggests a moderate to large hiatal hernia. Hyperinflation wi th flattening of the hemidiaphragms. No consolidation or pleural effusion is seen. IMPRESSION: COPD and underlying moderate to large hiatal hernia. No definite acute process.
[2019-11-08 18:51] LABS: ALT 10 U/L (4-34); AST 33 U/L (14-36); African American GFR (CKD) >90 (>60 ml/min/1.73 sqM); Albumin 2.6 g/dL (3.5-5.0); Alkaline Phosphatase 87 U/L (38-126); Blood Urea Nitrogen 16 mg/dL (7-17); Glucose 107 mg/dL (74-99); Magnesium 1.5 mg/dL (1.6-2.3); Non-African American GFR(CKD) >90 (>60 ml/min/1.73 sqM); Sodium 129 mmol/L (137-145); Total Bilirubin 1.3 mg/dL (0.2-1.3); Total Protein 4.9 g/dL (6.3-8.2)
[2019-11-08 18:57] LABS: Anion Gap 8 mmol/L
[2019-11-08 19:00] LABS: Carbon Dioxide 47 mmol/L (22-30); Chloride 74 mmol/L (98-107); Potassium 2.1 mmol/L (3.5-5.1)
[2019-11-08] MEDS ORDERED: POTASSIUM CHLORIDE ER 20 MEQ TAB.ER PO STA (19:05)
[2019-11-08] MEDS: SODIUM CHLORIDE 0.9% 1,000 ML IV SCH (21:06)
[2019-11-08] MEDS: MAGNESIUM SULFATE-D5W PMX 1 GM in DEXTROSE/WATER 1 100ML.BAG IVPB SCH ×2 (21:09→22:07)
[2019-11-08] MEDS: POTASSIUM CHLORIDE 10 MEQ in WATER FOR INJECTION 1 100ML.BAG IVPB SCH ×2 (21:23→22:27)
[2019-11-09 03:40] LABS: Anisocytosis Slight; Basophils % (A) 0 %; Eosinophils # (A) 0.1 k/uL (0-0.7); Eosinophils % (A) 1 %; HCT 32.7 % (34.0-46.0); HGB 11.4 gm/dL (11.4-16.0); Lymphocytes # (A) 0.9 k/uL (1.0-4.8); Lymphocytes % (A) 10 %; MCH 29.6 pg (25.0-35.0); MCHC 34.8 g/dL (31.0-37.0); Mean Platelet Volume 6.3; Monocytes # (A) 0.5 k/uL (0-1.0); Monocytes % (A) 6 %; Neutrophils # (A) 7.6 k/uL (1.3-7.7); Neutrophils % (A) 82 %; Platelet Count 375 k/uL (150-450); RBC 3.85 m/uL (3.80-5.40); RDW 16.6 % (11.5-15.5); WBC 9.3 k/uL (3.8-10.6)
[2019-11-09 03:55] LABS: ALT 11 U/L (4-34); AST 35 U/L (14-36); African American GFR (CKD) >90 (>60 ml/min/1.73 sqM); Albumin 2.7 g/dL (3.5-5.0); Alkaline Phosphatase 81 U/L (38-126); Blood Urea Nitrogen 15 mg/dL (7-17); Calcium 6.9 mg/dL (8.4-10.2); Chloride 80 mmol/L (98-107); Glucose 83 mg/dL (74-99); Non-African American GFR(CKD) >90 (>60 ml/min/1.73 sqM); Sodium 130 mmol/L (137-145); Total Bilirubin 1.3 mg/dL (0.2-1.3)
[2019-11-09 04:02] LABS: Anion Gap 7 mmol/L
[2019-11-09 04:05] LABS: Carbon Dioxide 43 mmol/L (22-30); Potassium 2.4 mmol/L (3.5-5.1)
[2019-11-09] MEDS ORDERED: Potassium Replacement Protocol 1 EACH MISC MISCELLANE PRN (04:50)
[2019-11-09] MEDS: POTASSIUM CHLORIDE 10 MEQ in WATER FOR INJECTION 1 100ML.BAG IVPB SCH ×7 (05:11→13:25)
[2019-11-09] MEDS ORDERED: QUEtiapine 25 MG TAB PO PRN (10:59)
[2019-11-09] MEDS: PANTOPRAZOLE 40 MG/10 ML VIAL IVP SCH (11:20)
--- NOTE | 2019-11-09 11:24 | P.HPIM ---
History of Present Illness 79-year-old female was born in the hospital with compensative generalized weakness and the patient has been falling and the family is unable to take care of her anymore. Patient appears to have dementia which appears to be pretty ad vanced which is her baseline. Patient is alert oriented 1-2. Patient denies any symptoms, patient was having nausea vomiting for about a week without any abdominal pain patient denied any chest pain. Patient does have mildly elevated troponin significant infiltrate abnormalities. Patient doesn't have any focal weakness or speech problems. Chest x-ray showed large had a little hernia and COPD. CT of the head did not show any significant abnormality although patient has a soft tissue mass on the scalp which is evident clinically. Patient is otherwise and has position. Patient was admitted in the hospital couple years ago at that time patient had a normal ejection fraction patient had the GI bleed at the time. Patient has mildly elevated troponins but stable at around 0.11, patient's EKG is showing left bundle branch block although this this left bundle branch block was not evident on the previous EKG but patient did have wide QRS complexes due to intra ventricular block. Review of Systems REVIEW OF SYSTEMS: CONSTITUTIONAL: No fever, no malaise, no fatigue. HEENT: No recent visual problems or hearing problems. Denied any sore throat. CARDIOVASCULAR: No chest pain, orthopnea, PND, no palpitations, no syncope. PULMONARY: No shortness of breath, no cough, no hemoptysis. GASTROINTESTINAL: No diarrhea, no nausea, no vomiting, no abdominal pain. NEUROLOGICAL: No headaches, no weakness, no numbness. HEMATOLOGICAL: Denies any bleeding or petechiae. GENITOURINARY: Denies any burning micturition, frequency, or urgency. MUSCULOSKELETAL/RHEUMATOLOGICAL: Denies any joint pain, swelling, or any muscle pain. ENDOCRINE: Denies any polyuria or polydipsia. The rest of the 14-point review of systems is negative. She is not reliable because of her confusion Past Medical History Past Medical History: Blood Disorder, GI Bleed, Hypertension, Vascular Disorder Additional Past Medical History / Comment(s): anemia and vericose veins History of Any Multi-Drug Resistant Organisms: None Reported Past Surgical History: No Surgical Hx Reported Past Anesthesia/Blood Transfusion Reactions: No Reported Reaction Past Psychological History: Anxiety Smoking Status: Former smoker Past Alcohol Use History: None Reported Past Drug Use History: None Reported - Past Family History Mother Family Medical History: No Reported History Father Family Medical History: No Reported History Medications and Allergies Home Medications Medication Instructions Recorded Confirmed Type Lisinopril-Hctz 20-25 mg 1 tab PO DAILY 04/07/14 09/13/17 History [Zestoretic 20-25] rOPINIRole HCL [Requip] 2 mg PO HS 04/07/14 09/13/17 History Calcium Carbonate [Calcium] 600 mg PO DAILY 09/13/17 09/13/17 History Multivitamins, Thera [Multivitamin 1 tab PO DAILY 09/13/17 09/13/17 History (formulary)] Acetaminophen Tab [Tylenol] 500 mg PO Q6HR PRN tab 09/15/17 Rx Cefuroxime Axetil [Ceftin] 500 mg PO BID #6 tab 09/15/17 Rx Metoprolol Tartrate [Lopressor] 12.5 mg PO BID #60 tab 09/15/17 Rx Pantoprazole Sodium [Protonix] 40 mg PO BID #60 tablet. 09/15/17 Rx Sucralfate [Carafate] 1 gm PO ACHS #120 tablet 09/15/17 Rx Allergies Allergy/AdvReac Type Severity Reaction Status Date / Time Penicillins Allergy Unknown Verified 09/13/17 09:03 Physical Exam Vitals: Vital Signs Temp Pulse Pulse Resp BP BP Pulse Ox 11/09/19 08:00 97.9 F 84 16 129/78 94 L 11/09/19 04:00 97.4 F L 73 16 115/59 93 L 11/09/19 00:00 76 18 11/08/19 23:26 97.9 F 76 18 124/57 97 11/08/19 22:42 76 18 11/08/19 22:11 97.7 F 76 18 124/70 94 L 11/08/19 21:51 97.7 F 76 18 124/70 94 L 11/08/19 21:15 78 18 114/74 94 L 11/08/19 18:34 73 18 122/94 92 L 11/08/19 18:28 71 18 126/69 95 11/08/19 17:46 81 18 104/68 98 11/08/19 16:27 98.7 F 93 18 101/58 89 L Intake and Output 11/08/19 11/09/1911/08/20 22:59 06:59 14:59 Intake Total 1560 Balance 1560 Intake: Intake, IV Titration 1560 Amount Magnesium Sulfate-D5w Pmx 200 1 gm In Dextrose/Water 1 100ml.bag @ 100 mls/hr IVPB Q1H [facility] Rx#: [id number] Potassium Chloride 10 meq 200 In Water For Injection 1 100ml.bag @ 100 mls/hr IVPB Q1H [facility] Rx#: [id number] Sodium Chloride 0.9% 1, 160 000 ml @ 80 mls/hr IV . [id number] [facility] Rx#:[id number] Sodium Chloride 0.9% 500 500 ml 500 ml @ 999 mls/hr IV .Q31M [facility] Rx#:[id number] Sodium Chloride 0.9% 500 500 ml 500 ml @ 999 mls/hr IV .Q31M [facility] Rx#:[id number] Other: Voiding Method Toilet Toilet Toilet # Voids 1 Weight 41.9 kg 41.9 kg PHYSICAL EXAMINATION: GENERAL: The patient is alert and oriented x3, not in any acute distress. Thin Built cachectic female HEENT ally reacting to light. EOMI. No scleral icterus. No conjunctival pallor. Normocephalic, atraumatic. No pharyngeal erythema. No thyromegaly. CARDIOVASCULAR: S1 and S2 present. No murmurs, rubs, or gallops. PULMONARY: Chest is clear to auscultation, no wheezing or crackles. ABDOMEN: Soft, nontender, nondistended, normoactive bowel sounds. No palpable organomegaly. MUSCULOSKELETAL: No joint swelling or deformity. EXTREMITIES: No cyanosis, clubbing, or pedal edema. NEUROLOGICAL: Gross neurological examination did not reveal any focal deficits. SKIN: There are multiple subcutaneous nodules a big one in the right flank area and there is another one in the chest which is more close to the skin which is fibrosis picture and there is one in the scalp with a central ulceration. Results CBC & Chem 7: 11/09/19 03:29 11/09/19 03:29 Labs: Abnormal Lab Results - Last 24 Hours (Table) 11/08/19 11/08/19 11/08/19 Range/Units 17:00 17:00 17:00 Hct (34.0-46.0) % RDW 16.5 H (11.5-15.5) % Lymphocytes # 0.3 L (1.0-4.8) k/uL Sodium (137-145) mmol/L Potassium (3.5-5.1) mmol/L Chloride (98-107) mmol/L Carbon Dioxide (22-30) mmol/L Creatinine (0.52-1.04) mg/dL Glucose (74-99) mg/dL Plasma Lactic Acid Wilber 3.5 H* (0.7-2.0) mmol/L Calcium (8.4-10.2) mg/dL Magnesium (1.6-2.3) mg/dL Troponin I 0.118 H* (0.000-0.034) ng/mL Total Protein (6.3-8.2) g/dL Albumin (3.5-5.0) g/dL 11/08/19 11/08/19 11/08/19 Range/Units 18:21 19:55 23:33 Hct (34.0-46.0) % RDW (11.5-15.5) % Lymphocytes # (1.0-4.8) k/uL Sodium 129 L (137-145) mmol/L Potassium 2.1 L* (3.5-5.1) mmol/L Chloride 74 L* (98-107) mmol/L Carbon Dioxide 47 H* (22-30) mmol/L Creatinine 0.36 L (0.52-1.04) mg/dL Glucose 107 H (74-99) mg/dL Plasma Lactic Acid Wilber (0.7-2.0) mmol/L Calcium 7.0 L (8.4-10.2) mg/dL Magnesium 1.5 L (1.6-2.3) mg/dL Troponin I 0.110 H* 0.103 H* (0.000-0.034) ng/mL Total Protein 4.9 L (6.3-8.2) g/dL Albumin 2.6 L (3.5-5.0) g/dL 11/09/19 11/09/19 Range/Units 03:29 03:29 Hct 32.7 L (34.0-46.0) % RDW 16.6 H (11.5-15.5) % Lymphocytes # 0.9 L (1.0-4.8) k/uL Sodium 130 L (137-145) mmol/L Potassium 2.4 L* (3.5-5.1) mmol/L Chloride 80 L (98-107) mmol/L Carbon Dioxide 43 H* (22-30) mmol/L Creatinine 0.26 L (0.52-1.04) mg/dL Glucose (74-99) mg/dL Plasma Lactic Acid Wilber (0.7-2.0) mmol/L Calcium 6.9 L (8.4-10.2) mg/dL Magnesium (1.6-2.3) mg/dL Troponin I (0.000-0.034) ng/mL Total Protein 5.0 L (6.3-8.2) g/dL Albumin 2.7 L (3.5-5.0) g/dL Thrombosis Risk Factor Assmnt - Choose All That Apply Any of the Below Risk Factors Present?: Yes Other Risk Factors: Yes Each Risk Factor Represents 3 Points: Age 75 years or older Other congenital or acquired thrombophilia - If yes, enter type in comment: No Thrombosis Risk Factor Assessment Total Risk Factor Score: 3 Thrombosis Risk Factor Assessment Level: Moderate Risk Assessment and Plan Plan: -Nausea vomiting: Most probably symmetric rashes with reflux disease and patient has a hiatal hernia patient was started on Protonix any with IV fluids -Hyponatremia hypovolemic hyponatremia from severe dehydration secondary to poor by mouth intake, diuretics and nausea vomiting patient will continue her IV fluids will recheck the lites tomorrow -Hypokalemia secondary to nausea vomiting which will be replaced -Acute renal failure secondary to nausea vomiting IV fluids as mentioned above -Troponin elevation nonspecific elevation not consistent and microinfarction because the left bundle branch block and this troponin elevation and consulting cardiology. -Dementia appears to be pretty advanced and he may have them dementia of Alzheimer's type -Hypomagnesemia magnesium was replaced -Multiple subcutaneous nodular fibrotic lesions: Angely surgery will be consulted for possible biopsy -Generalized deconditioning and falls: PT and OT will be consulted patient may need a placement -DVT prophylaxis with Lovenox
[2019-11-09] MEDS: SODIUM CHLORIDE 0.9% 1,000 ML IV SCH ×2 (13:25→20:53)
--- NOTE | 2019-11-09 13:37 | P.GSCN ---
<Ivone Marroquin - Last Filed: 11/09/19 13:15> History of Present Illness Consult date: 11/09/19 Reason for Consult: SQ nodules Requesting physician: Jos Tyler History of present illness: CHIEF COMPLAINT: Subcu nodules HISTORY OF PRESENT ILLNESS: 79-year-old female who presented to the emergency room secondary to weakness. General surgery was consulted for evaluation of multiple subcutaneous nodules. Patient examined at the bedside. She appears confused during examination. There is no family present. She is a poor historian. She states she just noticed these nodules about three weeks ago. She reports they are painful when they are touched. PAST MEDICAL HISTORY: See list. PAST SURGICAL HISTORY: See list. SOCIAL HISTORY: No illicit drug use. REVIEW OF SYSTEMS: CONSTITUTIONAL: Denies fever or chills. HEENT: Denies blurred vision, vision changes, or eye pain. Denies hemoptysis CARDIOVASCULAR: Denies chest pain or pressure. RESPIRATORY: No shortness of breath. GASTROINTESTINAL: Denies abdominal pain. Reports vomiting. HEMATOLOGIC: Denies bleeding disorders. GENITOURINARY: Denies any blood in urine. SKIN: Denies pruitis. Denies rash. Reports multiple "lumps" that developed over the last 3 weeks PHYSICAL EXAM: VITAL SIGNS: Reviewed. GENERAL: Well-developed in no acute distress. HEENT: No sclera icterus. Extraocular movements grossly intact. Moist buccal mucosa. Head is normocephalic. ABDOMEN: Soft. Nondistended. Nontender. NEUROLOGIC: Alert and oriented x 1. Cranial nerves II through XII grossly intact. SKIN: Patient with golf ball sized mass between breasts. Tender to touch. No discoloration. Firm. Nonmobile. Patient also with a mass to posterior aspect of scalp. Nontender. Mass is softer than others. Skin discoloration to middle of mass. Left hip with 1.5 x 1.5 inch mass. Firm. tender to touch. Discoloration and ulceration to surface of skin. ASSESSMENT: 1. Subcutaneous nodules PLAN: -Dr. Harrington will evaluate patient this afternoon. Hopefully patients family will be present to obtain more accurate history regarding nodules -Further recommendations pending Nurse practitioner note has been reviewed by physician. Signing provider agrees with the documented findings, assessment, and plan of care. Past Medical History Past Medical History: Blood Disorder, GI Bleed, Hypertension, Vascular Disorder Additional Past Medical History / Comment(s): anemia and vericose veins History of Any Multi-Drug Resistant Organisms: None Reported Past Surgical History: No Surgical Hx Reported Past Anesthesia/Blood Transfusion Reactions: No Reported Reaction Past Psychological History: Anxiety Smoking Status: Former smoker Past Alcohol Use History: None Reported Past Drug Use History: None Reported - Past Family History Mother Family Medical History: No Reported History Father Family Medical History: No Reported History Medications and Allergies Home Medications Medication Instructions Recorded Confirmed Type Lisinopril-Hctz 20-25 mg 1 tab PO DAILY 04/07/14 09/13/17 History [Zestoretic 20-25] rOPINIRole HCL [Requip] 2 mg PO HS 04/07/14 09/13/17 History Calcium Carbonate [Calcium] 600 mg PO DAILY 09/13/17 09/13/17 History Multivitamins, Thera [Multivitamin 1 tab PO DAILY 09/13/17 09/13/17 History (formulary)] Acetaminophen Tab [Tylenol] 500 mg PO Q6HR PRN tab 09/15/17 Rx Cefuroxime Axetil [Ceftin] 500 mg PO BID #6 tab 09/15/17 Rx Metoprolol Tartrate [Lopressor] 12.5 mg PO BID #60 tab 09/15/17 Rx Pantoprazole Sodium [Protonix] 40 mg PO BID #60 tablet.dr 09/15/17 Rx Sucralfate [Carafate] 1 gm PO ACHS #120 tablet 09/15/17 Rx Allergies Allergy/AdvReac Type Severity Reaction Status Date / Time Penicillins Allergy Unknown Verified 09/13/17 09:03 Surgical - Exam Vital Signs Temp Pulse Resp BP Pulse Ox 98.7 F 93 18 101/58 89 L 11/08/19 16:27 11/08/19 16:27 11/08/19 16:27 11/08/19 16:27 11/08/19 16:27 Results - Labs 11/09/19 03:29 11/09/19 03:29 Abnormal Lab Results - Last 24 Hours (Table) 11/08/19 11/08/19 11/08/19 Range/Units 17:00 17:00 17:00 Hct (34.0-46.0) % RDW 16.5 H (11.5-15.5) % Lymphocytes # 0.3 L (1.0-4.8) k/uL Sodium (137-145) mmol/L Potassium (3.5-5.1) mmol/L Chloride (98-107) mmol/L Carbon Dioxide (22-30) mmol/L Creatinine (0.52-1.04) mg/dL Glucose (74-99) mg/dL Plasma Lactic Acid Wilber 3.5 H* (0.7-2.0) mmol/L Calcium (8.4-10.2) mg/dL Magnesium (1.6-2.3) mg/dL Troponin I 0.118 H* (0.000-0.034) ng/mL Total Protein (6.3-8.2) g/dL Albumin (3.5-5.0) g/dL 11/08/19 11/08/19 11/08/19 Range/Units 18:21 19:55 23:33 Hct (34.0-46.0) % RDW (11.5-15.5) % Lymphocytes # (1.0-4.8) k/uL Sodium 129 L (137-145) mmol/L Potassium 2.1 L* (3.5-5.1) mmol/L Chloride 74 L* (98-107) mmol/L Carbon Dioxide 47 H* (22-30) mmol/L Creatinine 0.36 L (0.52-1.04) mg/dL Glucose 107 H (74-99) mg/dL Plasma Lactic Acid Wilber (0.7-2.0) mmol/L Calcium 7.0 L (8.4-10.2) mg/dL Magnesium 1.5 L (1.6-2.3) mg/dL Troponin I 0.110 H* 0.103 H* (0.000-0.034) ng/mL Total Protein 4.9 L (6.3-8.2) g/dL Albumin 2.6 L (3.5-5.0) g/dL 11/09/19 11/09/19 Range/Units 03:29 03:29 Hct 32.7 L (34.0-46.0) % RDW 16.6 H (11.5-15.5) % Lymphocytes # 0.9 L (1.0-4.8) k/uL Sodium 130 L (137-145) mmol/L Potassium 2.4 L* (3.5-5.1) mmol/L Chloride 80 L (98-107) mmol/L Carbon Dioxide 43 H* (22-30) mmol/L Creatinine 0.26 L (0.52-1.04) mg/dL Glucose (74-99) mg/dL Plasma Lactic Acid Wilber (0.7-2.0) mmol/L Calcium 6.9 L (8.4-10.2) mg/dL Magnesium (1.6-2.3) mg/dL Troponin I (0.000-0.034) ng/mL Total Protein 5.0 L (6.3-8.2) g/dL Albumin 2.7 L (3.5-5.0) g/dL Diabetes panel 11/08/19 11/09/19 Range/Units 18:21 03:29 Sodium 129 L 130 L (137-145) mmol/L Potassium 2.1 L* 2.4 L* (3.5-5.1) mmol/L Chloride 74 L* 80 L (98-107) mmol/L Carbon Dioxide 47 H* 43 H* (22-30) mmol/L BUN 16 15 (7-17) mg/dL Creatinine 0.36 L 0.26 L (0.52-1.04) mg/dL Glucose 107 H 83 (74-99) mg/dL Calcium 7.0 L 6.9 L (8.4-10.2) mg/dL AST 33 35 (14-36) U/L ALT 10 11 (4-34) U/L Alkaline Phosphatase 87 81 (38-126) U/L Total Protein 4.9 L 5.0 L (6.3-8.2) g/dL Albumin 2.6 L 2.7 L (3.5-5.0) g/dL Thyroid panel 11/08/19 Range/Units 18:21 TSH 0.904 (0.465-4.680) mIU/L Calcium panel 11/08/19 11/09/19 Range/Units 18:21 03:29 Calcium 7.0 L 6.9 L (8.4-10.2) mg/dL Albumin 2.6 L 2.7 L (3.5-5.0) g/dL Pituitary panel 11/08/19 11/09/19 Range/Units 18:21 03:29 Sodium 129 L 130 L (137-145) mmol/L Potassium 2.1 L* 2.4 L* (3.5-5.1) mmol/L Chloride 74 L* 80 L (98-107) mmol/L Carbon Dioxide 47 H* 43 H* (22-30) mmol/L BUN 16 15 (7-17) mg/dL Creatinine 0.36 L 0.26 L (0.52-1.04) mg/dL Glucose 107 H 83 (74-99) mg/dL Calcium 7.0 L 6.9 L (8.4-10.2) mg/dL TSH 0.904 (0.465-4.680) mIU/L Adrenal panel 11/08/19 11/09/19 Range/Units 18:21 03:29 Sodium 129 L 130 L (137-145) mmol/L Potassium 2.1 L* 2.4 L* (3.5-5.1) mmol/L Chloride 74 L* 80 L (98-107) mmol/L Carbon Dioxide 47 H* 43 H* (22-30) mmol/L BUN 16 15 (7-17) mg/dL Creatinine 0.36 L 0.26 L (0.52-1.04) mg/dL Glucose 107 H 83 (74-99) mg/dL Calcium 7.0 L 6.9 L (8.4-10.2) mg/dL Total Bilirubin 1.3 1.3 (0.2-1.3) mg/dL AST 33 35 (14-36) U/L ALT 10 11 (4-34) U/L Alkaline Phosphatase 87 81 (38-126) U/L Total Protein 4.9 L 5.0 L (6.3-8.2) g/dL Albumin 2.6 L 2.7 L (3.5-5.0) g/dL <Sandeep Harrington - Last Filed: 11/09/19 14:07> History of Present Illness History of present illness: as above. Patient with generalized medical decline and progressive weight loss. On examination patient has multiple suspicious subcutaneous nodules. We'll proceed with punch biopsy abdominal wall nodule tomorrow. Discussed case with the patient's [id number] who works at our oncology center. She will discuss with the remainder the family. Surgical - Exam Vital Signs Temp Pulse Resp BP Pulse Ox 98.7 F 93 18 101/58 89 L 11/08/19 16:27 11/08/19 16:27 11/08/19 16:27 11/08/19 16:27 11/08/19 16:27 Results - Labs 11/09/19 03:29 11/09/19 03:29 Abnormal Lab Results - Last 24 Hours (Table) 11/08/19 11/08/19 11/08/19 Range/Units 17:00 17:00 17:00 Hct (34.0-46.0) % RDW 16.5 H (11.5-15.5) % Lymphocytes # 0.3 L (1.0-4.8) k/uL Sodium (137-145) mmol/L Potassium (3.5-5.1) mmol/L Chloride (98-107) mmol/L Carbon Dioxide (22-30) mmol/L Creatinine (0.52-1.04) mg/dL Glucose (74-99) mg/dL Plasma Lactic Acid Wilber 3.5 H* (0.7-2.0) mmol/L Calcium (8.4-10.2) mg/dL Magnesium (1.6-2.3) mg/dL Troponin I 0.118 H* (0.000-0.034) ng/mL Total Protein (6.3-8.2) g/dL Albumin (3.5-5.0) g/dL 11/08/19 11/08/19 11/08/19 Range/Units 18:21 19:55 23:33 Hct (34.0-46.0) % RDW (11.5-15.5) % Lymphocytes # (1.0-4.8) k/uL Sodium 129 L (137-145) mmol/L Potassium 2.1 L* (3.5-5.1) mmol/L Chloride 74 L* (98-107) mmol/L Carbon Dioxide 47 H* (22-30) mmol/L Creatinine 0.36 L (0.52-1.04) mg/dL Glucose 107 H (74-99) mg/dL Plasma Lactic Acid Wilber (0.7-2.0) mmol/L Calcium 7.0 L (8.4-10.2) mg/dL Magnesium 1.5 L (1.6-2.3) mg/dL Troponin I 0.110 H* 0.103 H* (0.000-0.034) ng/mL Total Protein 4.9 L (6.3-8.2) g/dL Albumin 2.6 L (3.5-5.0) g/dL 11/09/19 11/09/19 Range/Units 03:29 03:29 Hct 32.7 L (34.0-46.0) % RDW 16.6 H (11.5-15.5) % Lymphocytes # 0.9 L (1.0-4.8) k/uL Sodium 130 L (137-145) mmol/L Potassium 2.4 L* (3.5-5.1) mmol/L Chloride 80 L (98-107) mmol/L Carbon Dioxide 43 H* (22-30) mmol/L Creatinine 0.26 L (0.52-1.04) mg/dL Glucose (74-99) mg/dL Plasma Lactic Acid Wilber (0.7-2.0) mmol/L Calcium 6.9 L (8.4-10.2) mg/dL Magnesium (1.6-2.3) mg/dL Troponin I (0.000-0.034) ng/mL Total Protein 5.0 L (6.3-8.2) g/dL Albumin 2.7 L (3.5-5.0) g/dL Diabetes panel 11/08/19 11/09/19 Range/Units 18:21 03:29 Sodium 129 L 130 L (137-145) mmol/L Potassium 2.1 L* 2.4 L* (3.5-5.1) mmol/L Chloride 74 L* 80 L (98-107) mmol/L Carbon Dioxide 47 H* 43 H* (22-30) mmol/L BUN 16 15 (7-17) mg/dL Creatinine 0.36 L 0.26 L (0.52-1.04) mg/dL Glucose 107 H 83 (74-99) mg/dL Calcium 7.0 L 6.9 L (8.4-10.2) mg/dL AST 33 35 (14-36) U/L ALT 10 11 (4-34) U/L Alkaline Phosphatase 87 81 (38-126) U/L Total Protein 4.9 L 5.0 L (6.3-8.2) g/dL Albumin 2.6 L 2.7 L (3.5-5.0) g/dL Thyroid panel 11/08/19 Range/Units 18:21 TSH 0.904 (0.465-4.680) mIU/L Calcium panel 11/08/19 11/09/19 Range/Units 18:21 03:29 Calcium 7.0 L 6.9 L (8.4-10.2) mg/dL Albumin 2.6 L 2.7 L (3.5-5.0) g/dL Pituitary panel 11/08/19 11/09/19 Range/Units 18:21 03:29 Sodium 129 L 130 L (137-145) mmol/L Potassium 2.1 L* 2.4 L* (3.5-5.1) mmol/L Chloride 74 L* 80 L (98-107) mmol/L Carbon Dioxide 47 H* 43 H* (22-30) mmol/L BUN 16 15 (7-17) mg/dL Creatinine 0.36 L 0.26 L (0.52-1.04) mg/dL Glucose 107 H 83 (74-99) mg/dL Calcium 7.0 L 6.9 L (8.4-10.2) mg/dL TSH 0.904 (0.465-4.680) mIU/L Adrenal panel 11/08/19 11/09/19 Range/Units 18:21 03:29 Sodium 129 L 130 L (137-145) mmol/L Potassium 2.1 L* 2.4 L* (3.5-5.1) mmol/L Chloride 74 L* 80 L (98-107) mmol/L Carbon Dioxide 47 H* 43 H* (22-30) mmol/L BUN 16 15 (7-17) mg/dL Creatinine 0.36 L 0.26 L (0.52-1.04) mg/dL Glucose 107 H 83 (74-99) mg/dL Calcium 7.0 L 6.9 L (8.4-10.2) mg/dL Total Bilirubin 1.3 1.3 (0.2-1.3) mg/dL AST 33 35 (14-36) U/L ALT 10 11 (4-34) U/L Alkaline Phosphatase 87 81 (38-126) U/L Total Protein 4.9 L 5.0 L (6.3-8.2) g/dL Albumin 2.6 L 2.7 L (3.5-5.0) g/dL
[2019-11-09] MEDS ORDERED: HALOPERIDOL LACTATE 5 MG/ML 1 ML VIAL IVP PRN (15:16)
[2019-11-09] MEDS: HALOPERIDOL LACTATE 5 MG/ML 1 ML VIAL IVP PRN (21:51)
[2019-11-10] MEDS: SODIUM CHLORIDE 0.9% 1,000 ML IV SCH (04:11)
[2019-11-10] MEDS: HALOPERIDOL LACTATE 5 MG/ML 1 ML VIAL IVP PRN ×2 (04:12→13:32)
[2019-11-10 06:40] LABS: Anisocytosis Slight; HCT 38.8 % (34.0-46.0); HGB 13.3 gm/dL (11.4-16.0); MCHC 34.2 g/dL (31.0-37.0); MCV 87.7 fL (80.0-100.0); Mean Platelet Volume 6.7; Platelet Count 396 k/uL (150-450); RBC 4.43 m/uL (3.80-5.40); RDW 16.6 % (11.5-15.5); WBC 13.2 k/uL (3.8-10.6)
[2019-11-10 06:51] LABS: African American GFR (CKD) >90 (>60 ml/min/1.73 sqM); Anion Gap 14 mmol/L; Blood Urea Nitrogen 6 mg/dL (7-17); Calcium 7.3 mg/dL (8.4-10.2); Carbon Dioxide 32 mmol/L (22-30); Chloride 86 mmol/L (98-107); Glucose 88 mg/dL (74-99); Non-African American GFR(CKD) >90 (>60 ml/min/1.73 sqM); Potassium 2.9 mmol/L (3.5-5.1); Sodium 132 mmol/L (137-145)
[2019-11-10] MEDS ORDERED: Potassium Replacement Protocol 1 EACH MISC MISCELLANE PRN (07:00)
[2019-11-10] MEDS: POTASSIUM CHLORIDE 10 MEQ in WATER FOR INJECTION 1 100ML.BAG IVPB SCH ×6 (07:08→19:38)
[2019-11-10] MEDS: ENOXAPARIN 40 MG/0.4 ML SYRINGE SQ SCH (08:30)
[2019-11-10] MEDS: PANTOPRAZOLE 40 MG/10 ML VIAL IVP SCH (08:30)
--- NOTE | 2019-11-10 10:00 | ECHOF ---
Referral Reason:elevated troponin MEASUREMENTS -------- HEIGHT: 172.7 cm WEIGHT: 41.7 kg BP: IVSd: 0.8 cm (0.6 - 1.1) LVIDd: 3.6 cm (3.9 - 5.3) LVPWd: 0.9 cm (0.6 - 1.1) IVSs: 1.4 cm LVIDs: 2.2 cm LVPWs: 1.5 cm Ao Diam: 2.8 cm (2.0 - 3.7) AV Cusp: 1.8 cm (1.5 - 2.6) LA Diam: 2.2 cm (2.7 - 3.8) MV EXCURSION: 14.577 mm (> 18.000) MV EF SLOPE: 45 mm/s (70 - 150) EPSS: 0.9 cm MV E Donato: 1.04 m/s MV DecT: 163 ms MV A Donato: 0.35 m/s MV E/A Ratio: 2.99 RAP: 5.00 mmHg RVSP: 11.95 mmHg FINDINGS -------- Sinus rhythm. This was a technically difficult study with suboptimal views. The left ventricular size is normal. Left ventricular wall thickness is normal. Overall left vent ricular systolic function is mild-moderately impaired with, an EF between 40 - 45 %. Mid and Apical septum LV wall motion is hypokinetic. The right ventricle is normal in size. The left atrial size is normal. The right atrial size is normal. Lumason used The aortic valve is trileaflet and appears structurally normal. The mitral valve is normal. There is trace mitral regurgitation. The tricuspid valve appears structurally normal. Trace tricuspid regurgitation present. Right ramin tricular systolic pressure is normal at < 35 mmHg. There is no pulmonic regurgitation present. The aortic root size is normal. IVC Not well visulized. There is no pericardial effusion. CONCLUSIONS -------- 1. Overall left ventricular systolic function is mild-moderately impaired with, an EF between 40 - 45 %. 2. Mid and Apical septum LV wall motion is hypokinetic. 3. There is trace mitral regurgitation. 4. Trace tricuspid regurgitation present. TAR PROCESSING TECHNICIAN: Cassi Brown RDCS
--- NOTE | 2019-11-10 10:22 | P.CRDCN ---
History of Present Illness Consult date: 11/10/19 Requesting physician: Celestina Parnell Reason for Consult (text): Abnormal troponin Chief complaint: Weakness and falls, nausea and vomiting History of present illness: This is a 79-year-old female with documented history of hypertension, dementia, prior GI bleed, hiatal hernia, history was obtained from the medical record as the patient is quite confused. She apparently was brought to the hospital with symptoms of falls, weakness and episodes of nausea and vomiting. A troponin level was obtained in the emergency room which came back to be mildly abnormal and for this reason a cardiology consultation had been requested. A CAT scan of the brain was performed which did not show any acute abnormality. Chest x-ray showed COPD with a large hiatal hernia. EKG showed normal sinus rhythm with a left bundle-branch block pattern. Admission labs White blood cell count 9.3, hemoglobin 11.4, platelet count 375. Sodium 129, potassium 2.1, BUN 16, creatinine 0.3. BNP level 1710, TSH 0.90 this morning's labs White blood cell count 13.2, hemoglobin 13.3, platelet count 396. Sodium 132, potassium 2.9, BUN 6, creatinine 0.2. Troponin 0.11, 0.11, 0.10. At the time of my exam ination this morning, patient had just received some Haldol and was quite calm, no complaints. Past Medical History Past Medical History: Blood Disorder, GI Bleed, Hypertension, Vascular Disorder Additional Past Medical History / Comment(s): anemia and vericose veins History of Any Multi-Drug Resistant Organisms: None Reported Past Surgical History: No Surgical Hx Reported Past Anesthesia/Blood Transfusion Reactions: No Reported Reaction Past Psychological History: Anxiety Smoking Status: Former smoker Past Alcohol Use History: None Reported Past Drug Use History: None Reported - Past Family History Mother Family Medical History: No Reported History Father Family Medical History: No Reported History Medications and Allergies Home Medications Medication Instructions Recorded Confirmed Type No Known Home Medications 11/09/19 11/09/19 History Allergies Allergy/AdvReac Type Severity Reaction Status Date / Time Penicillins Allergy Unknown Verified 11/09/19 15:49 Physical Exam Vitals: Vital Signs Temp Pulse Resp BP BP Pulse Ox 11/10/19 08:00 97.2 F L 100 16 122/78 93 L 11/10/19 03:40 88 16 125/73 96 11/09/19 20:00 97.5 F L 80 16 116/60 96 11/09/19 16:00 97.9 F 76 18 105/64 94 L 11/09/19 11:31 97.9 F 69 16 117/70 96 Intake and Output 11/09/19 11/10/19 11/10/19 22:59 06:59 14:59 Intake Total 444 560 Output Total 100 Balance 444 460 Intake: Intake, IV Titration 560 Amount Sodium Chloride 0.9% 1, 560 000 ml @ 100 mls/hr IV . Q10H CHERIE Rx#:[id number] Oral 444 Output: Urine 100 Other: Voiding Method Toilet Toilet Toilet # Voids 2 1 # Bowel Movements 1 1 Weight 44.5 kg PHYSICAL EXAMINATION: GENERAL: 79-year-old female in no acute distress at the time of my examination HEENT: Head is atraumatic, normocephalic. Pupils equal, round. Sclera anicteric. Conjunctiva are clear. Mucous membranes of the mouth are moist. Neck is supple. There is no elevated jugular venous pressure. No carotid bruit is heard. HEART EXAMINATION: Heart S1 and S2 systolic murmur is heard CHEST EXAMINATION:[ Lungs are clear to auscultation and precussion. No chest wall tenderness is noted on palpation or with deep breathing.] ABDOMEN: [ Soft, nontender. Bowel sounds are heard. No organomegaly noted]. EXTREMITIES:[ 2+ peripheral pulses with no evidence of peripheral edema and no calf tenderness noted]. NEUROLOGIC [patient is awake, alert and confused. SKIN: There are multiple subcutaneous nodules, a large one in the right flank area, another one in the chest, and one noted on the scalp Results 11/10/19 06:19 11/10/19 06:19 CBC 11/10/19 Range/Units 06:19 WBC 13.2 H (3.8-10.6) k/uL RBC 4.43 (3.80-5.40) m/uL Hgb 13.3 (11.4-16.0) gm/dL Hct 38.8 (34.0-46.0) % Plt Count 396 (150-450) k/uL Comprehensive Metabolic Panel 11/10/19 Range/Units 06:19 Sodium 132 L (137-145) mmol/L Potassium 2.9 L (3.5-5.1) mmol/L Chloride 86 L (98-107) mmol/L Carbon Dioxide 32 H (22-30) mmol/L BUN 6 L (7-17) mg/dL Creatinine 0.21 L (0.52-1.04) mg/dL Glucose 88 (74-99) mg/dL Calcium 7.3 L (8.4-10.2) mg/dL Current Medications Generic Name Dose Route Start Last Admin Trade Name Freq PRN Reason Stop Dose Admin Enoxaparin Sodium 40 mg 11/10/19 09:00 11/10/19 08:30 Lovenox SQ 40 mg DAILY CHERIE Administration Haloperidol Lactate 1 mg 11/09/19 15:16 11/09/19 15:36 Haldol IVP 1 mg Q6HR PRN Administration Agitation or Acute Psychosis Haloperidol Lactate 2 mg 11/09/19 15:16 11/10/19 04:12 Haldol IVP 2 mg Q6HR PRN Administration Agitation or Acute Psychosis Sodium Chloride 1,000 mls @ 100 mls/hr 11/08/19 19:30 11/10/19 04:11 Saline 0.9% IV 100 mls/hr .Q10H CHERIE Administration Potassium Chloride 10 meq/ IV 100 mls @ 100 mls/hr 11/10/19 07:00 11/10/19 08:31 Solution IVPB 11/10/19 12:59 100 mls/hr Q1HR CHERIE Administration Protocol Miscellaneous Information 1 each 11/10/19 07:00 Potassium Per Protocol MISCELLANE DAILY PRN Per Protocol Protocol Pantoprazole Sodium 40 mg 11/09/19 11:00 11/10/19 08:30 Protonix IVP 40 mg DAILY CHERIE Administration Quetiapine Fumarate 25 mg 11/09/19 10:59 Seroquel PO HS PRN Agitation Ropinirole HCl 2 mg 11/09/19 21:00 11/09/19 20:53 Requip PO Not Given HS CHERIE Intake and Output 11/09/19 11/10/19 11/10/19 22:59 06:59 14:59 Intake Total 444 560 Output Total 100 Balance 444 460 Intake: Intake, IV Titration 560 Amount Sodium Chloride 0.9% 1, 560 000 ml @ 100 mls/hr IV . Q10H CHERIE Rx#:[id number] Oral 444 Output: Urine 100 Other: Voiding Method Toilet Toilet Toilet # Voids 2 1 # Bowel Movements 1 1 Weight 44.5 kg 11/10/19 06:19 11/10/19 06:19 EKG Interpretations (text) EKG showed a normal sinus rhythm with a left bundle-branch block pattern Assessment and Plan Plan: Assessment and plan #1 weakness and falls, no evidence of any syncope #2 hyponatremia #3 hypokalemia #4 nausea and vomiting #5 dementia #6 hypomagnesemia #7 hypertension history #8 abnormal troponin, no significant rise and fall pattern, not suggestive of acute coronary syndrome #9 multiple subcutaneous nodular fibrotic lesions Plan We will obtain an echocardiogram with Doppler study. Electrolytes are being replaced. Further recommendations to follow. DNP note has been reviewed, I agree with a documented findings and plan of care. Patient was seen and examined.
--- NOTE | 2019-11-10 13:18 | CDI ---
Documentation Clarification Form Date: 11/10/2019 12:20:44 PM From: Cristina Agrawal RN CCDS Admit Date: 11/08/2019 07:29:00 PM Patient Name: Marisa Gutiérrez Visit Number: [id number] Discharge Date: ATTENTION: The Clinical Documentation Specialists (CDI) and [facility] Coding Staff appreciate your assistance in clarifying documentation. Please respond to the clarification below the line at the bottom and electronically sign. The CDI & [facility] Coding staff will review the response and follow-up if needed. Please note: Queries are made part of the Legal Health Record. If you have any questions, please contact the author of this message via ITS. Dr. Jos Tyler Malnutrition has been documented in Nutritional assessment by Dietary 11/08. History/Risk Factors: 79-year-old female presents to the ED via EMS for evaluation of generalized weakness. Medical History: blood disorder, GI bleed, Anemia and HTN Clinical Indicators: Current BMI: 16.8kg/m Dietary Assessment 11/08: Nutritional history- Generalized weakness, hypokalemia, Dementia, COPD, Anemia, Anxiety. Nutritional Assessment: Nutrition intake poor; 0-25% consumed; Heart healthy diet. Nutrition concerns: Difficulty swallowing, spitting up. Anthropometrics: Weight 41.9kg; Height 5ft 4 in body mass index 15.8 underweight. Calculated [place] body weight 63.503 kg; % ideal body weight 66%. Needs in [employer] formula for 25-30 Kcals/Kg; Energy Needs 1588- 1905(kcal). Nutritional Diagnosis: Malnutrition. Diagnostic statement related to intake of less than 75% of estimated nutritional requirements>1 week. As evidenced by severe depletion fat and muscle loss. Outcome Status: Initiated. Treatment: Dietary Consult: See above Food and snacks: Texture-modified diet Supplements: [place] Oral supplement TID w/meals In your professional opinion, can you please clarify if these findings signify one of the following conditions? Moderate Protein-Calorie Malnutrition Severe Protein-Calorie Malnutrition Other condition, please specify Unable to determine Moderate protein calorie malnutrition documented in Internal Medicine progress note 11/09 (Last Revision: October 2018) MTDD
[2019-11-10] MEDS ORDERED: QUEtiapine 25 MG TAB PO PRN (14:11)
--- NOTE | 2019-11-10 14:11 | P.CN ---
Psychiatric Consult - . Consult date: 11/10/19 Consult:: 11/10/19 14:02 IDENTIFYING DATA: This patient is a 79-year-old female currently lives with her and house HISTORY OF PRESENT ILLNESS: The patient presented to the hospital for weakness initially brought in by family members. Patient had trouble getting off the toilet apparently and had unsteady gait according to family members in the ER. Patient had a computed tomography scan of her head which was negative and also troponins were mildly elevated, sodium is 129 potassium 2.1 calcium 7.0 magnesium 1.5 on admission. Patient was also reported to be agitated climbing out of bed. [place] and screaming out and nursing staff. Patient had received Haldol IV 2 doses within the past 24 hours 1 mg and 2 mg for agitation. Patients nurse at the bedside claims that patient has been eating somewhat however has been refusing to take medications orally and had been repeatedly trying to come off the bed and appeared to be confused and was pulling out her IV lines earlier. Patient was evaluated by psychiatry for agitation/acute psychosis for consultation. Patient was awake and fairly demanding towards law writer and questioning who he was. Patient states law writer to move her tray of food so that she can get out of the bed. Patient appeared to be confused and impulsive and also argumentative. She claims that she has to "do some errands and also "running around". She answers some questions appropriately however others inappropriately and states that "if you ask me stupid questions regarding any give you stupid answer". She claims to have poor sleep. Patient believes that today's date is "2021" does not know who the president is and believes that she is at Psychiatric and not the hospital. At this time patient denies any suicidal or homical ideations, intent or plan. Patient denies any auditory, visual hallucinations. PAST PSYCHIATRIC HISTORY: Patient has a a history of dementia. Patient has not been admitted to the mental health unit. Patient is unable to cooperate with psychiatric history questions. PAST MEDICAL HISTORY: Blood disorder, GI bleed, hypertension, dementia. ALLERGIES: as per EMR. CHEMICAL DEPENDENCY HISTORY: as per HPI. FAMILY PSYCHIATRIC/SUBSTANCE USE HISTORY: Unable to assess SOCIAL HISTORY: Unable to assess majority of patient's social history. Patient does live with her in a house who is her full caregiver. MENTAL STATUS EXAM: General Appearance: Patient appears to be stated age is alert, argumentative and uncooperative. Patient appears to have fair hygiene and grooming wearing hospital gown with poor eye contact. Behavior: Patient appears to be agitated at times and restless appearing to try to get out of bed several times. Speech: Patient's speech is fluent and nonpressured. Mood/Affect: Patient reports their mood is "ok", affect is congruent and constricted. Suicidality/Homicidality: Patient denies having any suicidal or homicidal ideation intent or plan. Perceptions: Patient denies any visual hallucinations and denies any auditory hallucinations Though content/process: [place], illogical. Demanding/argumentative. Confabulation. Memory and concentration: AOX1, believes that the date is "2019" and believes that she is at "[facility]". Cannot spell "WORLD" backwards. Poor fund of knowledge. Poor judgment Judgment and insight: poor/impulsive IMPRESSIONS: Dementia, likely Alzheimer's type with behavioral disturbance PLAN: -At this time patient DOES NOT meet criteria for inpatient psychiatric admission. -Patient DOES NOT have decision making capacity at this time and is unable to reason through and communicate/appreciate the risks, benefits and alternatives to treatment. -Delirium precautions recommended with patient including - avoiding use of narcotics and HYDROMETER CALIBRATOR sedatives, limit anticholinergic medications when possible, frequent re-orientation, minimize use of restraints, open window shades during the day and close them at night -Would recommend the following medication changes/additions: PLEASE AVOID ANY B ENZODIAZEPINES at this time as this will make patient's confusion worse and potentially cause a fall. Will switch Haldol prn to Zyprexa prn for agitation/psychosis. Will increase Seroquel to 25mg twice a day when necessary for insomnia/psychosis. -Continue 1:1 sitter for safety -Will continue to follow along -ice cream vault worker to look into possibility of placement if patient's is not able to care for her any longer at home. -Please contact with any questions.
[2019-11-10] MEDS ORDERED: OLANZapine 10 MG VIAL IM STA (14:14)
--- NOTE | 2019-11-10 16:04 | P.PN ---
Subjective Progress Note Date: 11/10/19 Principal diagnosis: 79-year-old female was born in the hospital with compensative generalized weakness and the patient has been falling and the family is unable to take care of her anymore. Patient appears to have dementia which appears to be pretty advanced which is her baseline. Patient is alert oriented 1-2. Patient denies any symptoms, patient was having nausea vomiting for about a week without any abdominal pain patient denied any chest pain. Patient does have mildly elevated troponin significant infiltrate abnormalities. Patient doesn't have any focal weakness or speech problems. Chest x-ray showed large had a little hernia and COPD. CT of the head did not show any significant abnormality although patient has a soft tissue mass on the scalp which is evident clinically. Patient is otherwise and has position. Patient was admitted in the hospital couple years ago at that time patient had a normal ejection fraction patient had the GI bleed at the time. Patient has mildly elevated troponins but stable at around 0.11, patient's EKG is showing left bundle branch block although this this left bundle branch block was not evident on the previous EKG but patient did have wide QRS complexes due to intra ventricular block. 11/10/2019 Patient is seen and evaluated in follow-up today and continues to be confused and currently has a sitter at the bedside for safety. Patient awaiting to undergo punch biopsies with surgery of a lump noted on the upper right chest. Patient continues to be agitated with advancing dementia. Patient currently denies any abdominal discomfort although continues to spit food up and have continued poor oral intake. Patient evaluated by speech pathology recommending a GI consult which was placed in pending at this time. Potassium was replaced and is currently 2.9 today. Will replace and repeat labs in the morning. P sychiatry was consulted and pending at this time as well. An echo was done and currently pending. He should denies any chest pain or shortness of breath. It is afebrile. Objective - Vital Signs Vital signs: Vital Signs Temp 97.6 F 11/10/19 11:26 Pulse 71 11/10/19 11:26 Resp 16 11/10/19 11:26 BP 96/85 11/10/19 11:26 Pulse Ox 93 L 11/10/19 11:26 Intake & Output 11/09/19 11/10/19 11/10/19 18:59 06:59 18:59 Intake Total 444 560 Output Total 100 Balance 444 460 Weight 41.9 kg 44.5 kg Intake: Intake, IV Titration 560 Amount Sodium Chloride 0.9% 1, 560 000 ml @ 100 mls/hr IV . Q10H [facility] Rx#:[id number] Oral 444 Output: Urine 100 Other: Voiding Method Toilet Toilet Toilet # Voids 2 1 # Bowel Movements 1 1 2 - Exam GENERAL: The patient is alert and oriented x3, not in any acute distress. Thin Built cachectic female HEENT PERRLA. EOMI. No scleral icterus. No conjunctival pallor. Normocephalic, atraumatic. No pharyngeal erythema. No thyromegaly. CARDIOVASCULAR: S1 and S2 present. No murmurs, rubs, or gallops. PULMONARY: Chest is clear to auscultation, no wheezing or crackles. ABDOMEN: Soft, nontender, nondistended, normoactive bowel sounds. No palpable organomegaly. MUSCULOSKELETAL: No joint swelling or deformity. EXTREMITIES: No cyanosis, clubbing, or pedal edema. NEUROLOGICAL: Gross neurological examination did not reveal any focal deficits. SKIN: There are multiple subcutaneous nodules a big one in the right flank area and there is another one in the chest which is more close to the skin which appears fibrocystic and there is one in the scalp with a central ulceration. - Labs CBC & Chem 7: 11/10/19 06:19 11/10/19 06:19 Labs: Abnormal Lab Results - Last 24 Hours (Table) 11/10/19 11/10/19 Range/Units 06:19 06:19 WBC 13.2 H (3.8-10.6) k/uL RDW 16.6 H (11.5-15.5) % Sodium 132 L (137-145) mmol/L Potassium 2.9 L (3.5-5.1) mmol/L Chloride 86 L (98-107) mmol/L Carbon Dioxide 32 H (22-30) mmol/L BUN 6 L (7-17) mg/dL Creatinine 0.21 L (0.52-1.04) mg/dL Calcium 7.3 L (8.4-10.2) mg/dL Assessment and Plan Assessment: -Nausea vomiting: Most probably associated with reflux disease and patient has a hiatal hernia patient was started on Protonix and with IV fluids -Moderate protein calorie malnutrition with a BMI of 16.8 -Hyponatremia hypovolemic hyponatremia from severe dehydration secondary to poor by mouth intake, diuretics and nausea vomiting, improving, current sodium is 132 -Hypokalemia secondary to nausea vomiting which will be replaced, current potassium is 2.9 being replaced will repeat a.m. labs. -Acute renal failure secondary to nausea vomiting IV fluids as mentioned above -Troponin elevation nonspecific elevation not consistent with myocardial infarction because the left bundle branch block and this troponin elevation and consulting cardiology. Cardio following an echo was ordered and pending. -Dementia appears to be pretty advanced and he may have them dementia of Alzheimer's type -Hypomagnesemia magnesium was replaced, improved current magnesium 2.2 -Multiple subcutaneous nodular fibrotic lesions: Surgery to perform a punch biopsy today -Generalized deconditioning and falls: PT and OT will be consulted patient may need a placement -DVT prophylaxis with Lovenox
--- NOTE | 2019-11-10 18:19 | P.PCN ---
Date of Procedure: 11/10/19 Procedure(s) Performed: PREOPERATIVE DIAGNOSIS: Abdominal wall nodule POSTOPERATIVE DIAGNOSIS: Same PROCEDURE: 4 mm punch biopsy abdominal wall nodule SURGEON: Len EBL: 1 cc ANESTHESIA: Local COMPLICATIONS: None OPERATIVE PROCEDURE: Left upper abdominal wall nodule 2.5 cm prepped sterilely. Skin localized with lidocaine. A 4 mm punch biopsy performed centrally. Skin closed with 4-0 Monocryl stitch. Sterile dressings applie DISPOSITION: Stable
[2019-11-10] MEDS: OLANZapine 10 MG VIAL IM PRN (19:39)
[2019-11-11] MEDS: OLANZapine 10 MG VIAL IM PRN (00:53)
--- NOTE | 2019-11-11 02:28 | CONS ---
CONSULTATION DATE OF DICTATION: 11/10/2019 REASON FOR CONSULTATION: Dysphagia and progressive weight loss. HISTORY OF PRESENT ILLNESS: This is a 79-year-old pleasant white female who came into the emergency room complaining of progressive weakness, generalized fatigue, dysphagia, and weight loss of almost 30 pounds in the last 6 months duration. The patient states that every time she eats food gets stuck in the midsternal area and subsequently has passive regurgitation with nausea and vomiting. She has been eating only softer foods daily. As per her daughter, she lost about 30 pounds. She recalls having an upper endoscopy about 2 years ago. She also had some soft tissue mass on the scalp and the anterior abdominal wall for which Dr. Harrington has been consulted and she underwent a biopsy of the lesion this afternoon. PAST MEDICAL HISTORY: Significant for hypertension, valvular heart disease. PAST SURGICAL HISTORY: Unremarkable. MEDICATIONS AT HOME: Lisinopril, Zestoretic, ropinirole, multivitamin, acetaminophen, Carafate, Protonix Lopressor, Tylenol. ALLERGIES: PENICILLIN. SOCIAL HISTORY: Former smoker. No alcohol use. FAMILY HISTORY: Unremarkable. REVIEW OF SYSTEMS: CARDIOPULMONARY: No chest pain or shortness of breath. GENITOURINARY: Some dysuria. NEUROLOGY: Fatigue and weakness. ENT/VISION: Unremarkable. CONSTITUTIONAL: Weight loss of 30 pounds. HEMATOLOGY: Unremarkable. GI: As mentioned above. MUSCULOSKELETAL: Chronic back pain. PHYSICAL EXAMINATION: She appears comfortable. No apparent distress. Vital signs are stable. Blood pressure is 114/74, pulse rate 74, temperature 98.6. HEENT EXAMINATION: Unremarkable. Conjunctivae pink. Sclerae anicteric. Oral cavity no lesions. NECK: No JVD or lymph node enlargement. CHEST: Clear to auscultation. HEART: Regular rate and rhythm. ABDOMEN: Soft. There was a 2 cm lesion on the anterior abdominal wall that was just biopsied this afternoon. Also, there was a palpable 2 cm inguinal lymph node noted. EXTREMITIES: No pedal edema. NEURO: She is alert and oriented x3. No focal deficits. LABS: Labs from today: WBC 13.2, hemoglobin 13.3, platelets normal. Basic metabolic panel showed a sodium 132, potassium 2.9, chloride 86, CO2 of 32, BUN 6, creatinine 0.21. IMPRESSION: 1. Progressive dysphagia to solids for the last 6 months duration with weight loss of almost 30 pounds. 2. Abdominal wall nodule, status post punch biopsy today by Dr. Harrington. 3. Enlarged inguinal lymph nodes. 4. Generalized weakness and fatigue. RECOMMENDATIONS: 1. Will proceed with an upper endoscopy tomorrow. I discussed with the patient risks, benefits and complications of the procedure and agreeable to it. In the meantime, continue with soft diet. 2. Continue Protonix 40 mg daily. 3. Further recommendations will follow based on the upper endoscopy results. Thank you for this consultation. MMODL / IJN: [id number] /
[2019-11-11 05:03] LABS: Appearance,Urine Clear (Clear); Bacteria,Urine Rare /hpf; Bilirubin,Urine Negative (Negative); Blood,Urine Negative (Negative); Color,Urine Yellow; Glucose,Urine (UA) Negative (Negative); Hyaline Casts,Urine 1 /lpf (0-2); Ketones,Urine 2+ (Negative); Leukocyte Esterase,Urine Small (Negative); Mucus,Urine Occasional /hpf; Nitrite,Urine Negative (Negative); PH, Urine 5.5 (5.0-8.0); Protein,Urine Negative (Negative); Specific Gravity,Urine 1.006 (1.001-1.035); Squamous Epithelial Cell,Urine 1 /hpf (0-4); Urobilinogen,Urine <2.0 mg/dL (<2.0); WBC,Urine 6 /hpf (0-5)
[2019-11-11] MEDS: SODIUM CHLORIDE 0.9% 1,000 ML IV SCH ×2 (06:40→06:41)
[2019-11-11 06:44] LABS: Anisocytosis Slight; Basophils % (A) 0 %; Eosinophils % (A) 0 %; HCT 36.1 % (34.0-46.0); HGB 12.4 gm/dL (11.4-16.0); Lymphocytes # (A) 0.5 k/uL (1.0-4.8); Lymphocytes % (A) 4 %; MCH 30.9 pg (25.0-35.0); MCHC 34.4 g/dL (31.0-37.0); MCV 89.8 fL (80.0-100.0); Mean Platelet Volume 6.8; Monocytes # (A) 0.5 k/uL (0-1.0); Monocytes % (A) 4 %; Neutrophils # (A) 10.2 k/uL (1.3-7.7); Neutrophils % (A) 90 %; Platelet Count 370 k/uL (150-450); RBC 4.02 m/uL (3.80-5.40); RDW 17.3 % (11.5-15.5); WBC 11.4 k/uL (3.8-10.6)
[2019-11-11 06:57] LABS: African American GFR (CKD) >90 (>60 ml/min/1.73 sqM); Anion Gap 11 mmol/L; Blood Urea Nitrogen 5 mg/dL (7-17); Calcium 7.5 mg/dL (8.4-10.2); Carbon Dioxide 28 mmol/L (22-30); Chloride 94 mmol/L (98-107); Glucose 85 mg/dL (74-99); Non-African American GFR(CKD) >90 (>60 ml/min/1.73 sqM); Potassium 2.8 mmol/L (3.5-5.1); Sodium 133 mmol/L (137-145)
[2019-11-11] MEDS: PANTOPRAZOLE 40 MG TABLET PO SCH (08:54)
[2019-11-11] MEDS: ENOXAPARIN 40 MG/0.4 ML SYRINGE SQ SCH (08:54)
--- NOTE | 2019-11-11 10:13 | P.PN ---
<Ivone Marroquin oZ - Last Filed: 11/11/19 10:10> Subjective Progress Note Date: 11/11/19 CHIEF COMPLAINT: Subcu nodules HISTORY OF PRESENT ILLNESS: Patient is status post punch biopsy of abdominal wall nodule with Dr. Harrington. POD #1. Patient examined this morning at the bedside. Patient is confused. She has a safety security officer at the bedside. Blood pressure stable. Patient is afebrile. Patient tachycardic overnight. Biopsy results are pending. PHYSICAL EXAM: VITAL SIGNS: Reviewed. GENERAL: Well-developed in no acute distress. HEENT: No sclera icterus. Extraocular movements grossly intact. Moist buccal mucosa. Head is normocephalic. ABDOMEN: Soft. Nondistended. Nontender. Dressing to biopsy site with small amount of shadowing present. NEUROLOGIC: Alert and oriented x 1. Cranial nerves II through XII grossly intact. SKIN: Patient with multiple subcutaneous nodules. ASSESSMENT: 1. Subcutaneous nodules PLAN: Await biopsy results. Further recommendations pending biopsy results Nurse practitioner note has been reviewed by physician. Signing provider agrees with the documented findings, assessment, and plan of care. Objective - Vital Signs Vital signs: Vital Signs Temp 97.7 F 11/11/19 04:00 Pulse 66 11/11/19 08:00 Resp 18 11/11/19 08:00 BP 131/74 11/11/19 08:00 Pulse Ox 100 11/11/19 08:00 Intake & Output 11/10/19 11/11/19 11/11/19 18:59 06:59 18:59 Output Total 420 Balance -420 Output: Urine 420 Other: Voiding Method Toilet Toilet # Voids 1 1 1 # Bowel Movements 2 - Labs CBC & Chem 7: 11/11/19 06:02 11/11/19 06:02 Labs: Abnormal Lab Results - Last 24 Hours (Table) 11/11/19 11/11/19 11/11/19 Range/Units 04:42 06:02 06:02 WBC 11.4 H (3.8-10.6) k/uL RDW 17.3 H (11.5-15.5) % Neutrophils # 10.2 H (1.3-7.7) k/uL Lymphocytes # 0.5 L (1.0-4.8) k/uL Sodium 133 L (137-145) mmol/L Potassium 2.8 L (3.5-5.1) mmol/L Chloride 94 L (98-107) mmol/L BUN 5 L (7-17) mg/dL Creatinine 0.20 L (0.52-1.04) mg/dL Calcium 7.5 L (8.4-10.2) mg/dL Urine Ketones 2+ H (Negative) Ur Leukocyte Esterase Small H (Negative) Urine WBC 6 H (0-5) /hpf Urine Bacteria Rare H (None) /hpf Urine Mucus Occasional H (None) /hpf <Sandeep Harrington - Last Filed: 11/11/19 12:04> Subjective As above. Patient remains confused. No significant pain at the biopsy site. Small amount of shadowing. Await biopsy results. I will be out of town after today. We'll sign off. Primary service to review pathologic findings with the patient. Anticipate oncology consult will be needed. Objective - Vital Signs Vital signs: Vital Signs Temp 97.7 F 11/11/19 04:00 Pulse 66 11/11/19 08:00 Resp 18 11/11/19 08:00 BP 131/74 11/11/19 08:00 Pulse Ox 100 11/11/19 08:00 Intake & Output 11/10/19 11/11/19 11/11/19 18:59 06:59 18:59 Output Total 420 Balance -420 Output: Urine 420 Other: Voiding Method Toilet Toilet # Voids 1 1 1 # Bowel Movements 2 - Labs CBC & Chem 7: 11/11/19 06:02 11/11/19 06:02 Labs: Abnormal Lab Results - Last 24 Hours (Table) 11/11/19 11/11/19 11/11/19 Range/Units 04:42 06:02 06:02 WBC 11.4 H (3.8-10.6) k/uL RDW 17.3 H (11.5-15.5) % Neutrophils # 10.2 H (1.3-7.7) k/uL Lymphocytes # 0.5 L (1.0-4.8) k/uL Sodium 133 L (137-145) mmol/L Potassium 2.8 L (3.5-5.1) mmol/L Chloride 94 L (98-107) mmol/L BUN 5 L (7-17) mg/dL Creatinine 0.20 L (0.52-1.04) mg/dL Calcium 7.5 L (8.4-10.2) mg/dL Urine Ketones 2+ H (Negative) Ur Leukocyte Esterase Small H (Negative) Urine WBC 6 H (0-5) /hpf Urine Bacteria Rare H (None) /hpf Urine Mucus Occasional H (None) /hpf
[2019-11-11] MEDS ORDERED: LIDOCAINE 1% INJ 10MG/ML (20 ML MDV) ONE (13:13)
[2019-11-11] MEDS ORDERED: PHENYLEPHRINE-0.9% NACL SYG 1 MG/10 ML SYRINGE ONE (13:13)
[2019-11-11] MEDS ORDERED: PROPOFOL 10 MG/ML 20 ML VIAL IV ONE (13:13)
[2019-11-11] MEDS ORDERED: IV FLUID CONTINUATION 800 ML IV ONE (13:14)
--- NOTE | 2019-11-11 13:31 | P.PCN ---
Date of Procedure: 11/11/19 Procedure(s) Performed: BRIEF HISTORY: Patient is a 79-year-old, pleasant, white female hospital with generalized weakness and severe severe dysphagia for the last few months duration. He is hence scheduled for an upper endoscopy to evaluate . further. PROCEDURE PERFORMED: Esophagogastroduodenoscopy with biopsy PREOPERATIVE DIAGNOSIS: Progressive dysphagia to solids and weight loss IV Sedation per anesthesia. PROCEDURE: After informed consent was obtained, the patient was brought into the endoscopy unit. IV sedation was administered by Anesthesia under continuous monitoring. Initially the Olympus GIF-140 video endoscope was inserted into the mouth. Esophagus intubated without any difficulty. It was gradually advanced into the the esophagus and there was large amount of solid food noted in the entire length of esophagus.The scope was advanced into the distal esophagus. There was a tight stricture identified. There was large amount of solid food noted in the distal esophagus and despite multiple attempts I was not able to clear the esophagus. At this time I biopsy the esophageal stricture with the mucosa appeared very friable. The scope could not be advanced into the stomach. At this time the procedure was terminated and the patient tolerated the procedure well. IMPRESSION: 1. Dilated esophagus with large solid food throughout the entire esophagus. 2. Tight distal esophageal stricture with friable mucosa status post biopsy. However the scope could not be advanced into the stomach. RECOMMENDATIONS: The findings of this examination were discussed with the patient as well as his family. At this time will await the biopsy results. She will be on clear liquid diet. We'll plan a repeat upper endoscopy in 48 hours to visualize the esophagus that are and possible dilation of the distal esophageal stricture
--- NOTE | 2019-11-11 14:15 | P.PN ---
Progress Note - Text Progress Note Date: 11/11/19 Patient was attempted to be seen by personal lines underwriter today for psychiatric follow-up however patient was not in the room today and was getting an EGD and a procedure done. Patient's nurse was spoken to her over the phone who claims that patient continues to be confused at times and rambling however behaviorally has been more cooperative and appropriate and was able to sleep better last night. Patient received IM Zyprexa prn dose along with a Seroquel po prn doses well. Continue with current diagnosis. Continue with current medications as prescribed including Seroquel and Zyprexa prns for agitation/acute psychosis and insomnia. Patient will chronically be displaying cognitive deficits and poss ible confusion however it appears that she has behaviorally been improving and has been more cooperative. wireworker supervisor/disability case manager to continue looking into possible placement if patient's agrees. Continue with sitter and delirium precautions. Will follow up only if requested by primary team however at this time will sign off.
[2019-11-11] MEDS: POTASSIUM CHLORIDE 10 MEQ in WATER FOR INJECTION 1 100ML.BAG IVPB SCH ×4 (16:13→21:45)
--- NOTE | 2019-11-11 16:30 | P.PN ---
Subjective Progress Note Date: 11/11/19 Principal diagnosis: 79-year-old female was born in the hospital with compensative generalized weakness and the patient has been falling and the family is unable to take care of her anymore. Patient appears to have dementia which appears to be pretty advanced which is her baseline. Patient is alert oriented 1-2. Patient denies any symptoms, patient was having nausea vomiting for about a week without any abdominal pain patient denied any chest pain. Patient does have mildly elevated troponin significant infiltrate abnormalities. Patient doesn't have any focal weakness or speech problems. Chest x-ray showed large had a little hernia and COPD. CT of the head did not show any significant abnormality although patient has a soft tissue mass on the scalp which is evident clinically. Patient is otherwise and has position. Patient was admitted in the hospital couple years ago at that time patient had a normal ejection fraction patient had the GI bleed at the time. Patient has mildly elevated troponins but stable at around 0.11, patient's EKG is showing left bundle branch block although this this left bundle branch block was not evident on the previous EKG but patient did have wide QRS complexes due to intra ventricular block. 11/10/2019 Patient is seen and evaluated in follow-up today and continues to be confused and currently has a sitter at the bedside for safety. Patient awaiting to undergo punch biopsies with surgery of a lump noted on the upper right chest. Patient continues to be agitated with advancing dementia. Patient currently denies any abdominal discomfort although continues to spit food up and have continued poor oral intake. Patient evaluated by speech pathology recommending a GI consult which was placed in pending at this time. Potassium was replaced and is currently 2.9 today. Will replace and repeat labs in the morning. P sychiatry was consulted and pending at this time as well. An echo was done and currently pending. He should denies any chest pain or shortness of breath. It is afebrile. 11/11/2019 Patient is seen and evaluated and follow-up currently sleeping but arousable. Patient continues to be confused and has a sitter at the bedside. Patient underwent punch biopsy of the right chest wall nodule with Dr. Harrington yesterday. Pathology pending. Patient underwent upper endoscopy today with GI showing a d ilated esophagus with large solid food throughout the entire esophagus and tight distal esophageal stricture with friable mucosa and biopsies were obtained. Patient will continue on a clear liquid diet and will undergo repeat upper endoscopy in 48 hours with possible dilatation of the distal esophageal stricture. Potassium continues to be low at 2.8 and will be replaced again and will repeat a.m. labs. Patient continues to have poor oral intake and will be monitored closely. Discussed with the patient's family about possible placement and further discussions of hospice. Family is to meet with hospice for an informational meeting. Case management and social work following closely to [facility] with discharge planning needs and possible ECF placement at [facility]. Psychiatry also following and adjustments to medications have been made. Patient to continue on Zyprexa along with Seroquel. Review of systems: Constitutional: Reports fatigue, no reports of fevers or chills Cardiovascular: No reports of chest pain or palpitations Respiratory: No reports of shortness of breath, reports occasional cough GI: No reports of nausea or vomiting : No reports of dysuria or retention Neurovascular: Reports weakness with no reports of numbness Active Medications Enoxaparin Sodium (Lovenox) 40 mg SQ DAILY [facility] Last Admin: 11/11/19 08:54 Dose: 40 mg Documented by: Sodium Chloride (Saline 0.9%) 1,000 mls @ 100 mls/hr IV .Q10H [facility] Last Admin: 11/11/19 06:41 Dose: Not Given Documented by: Potassium Chloride 10 meq/ IV (Solution) 100 mls @ 100 mls/hr IVPB Q1HR [facility]; Protocol Stop: 11/11/19 18:59 Last Admin: 11/11/19 16:13 Dose: 100 mls/hr Documented by: Miscellaneous Information (Potassium Per Protocol) 1 each MISCELLANE DAILY PRN; Protocol PRN Reason: Per Protocol Olanzapine (Zyprexa) 2.5 mg IM Q6HR PRN PRN Reason: Agitation or Acute Psychosis Last Admin: 11/11/19 00:53 Dose: 2.5 mg Documented by: Pantoprazole Sodium (Protonix) 40 mg PO AC-BRKFST [facility] Last Admin: 11/11/19 08:54 Dose: Not Given Documented by: Quetiapine Fumarate (Seroquel) 25 mg PO BID PRN PRN Reason: Agitation or Acute Anxiety Last Admin: 11/10/19 19:58 Dose: 25 mg Documented by: Ropinirole HCl (Requip) 2 mg PO HS [facility] Last Admin: 11/10/19 19:59 Dose: 2 mg Documented by: Objective - Vital Signs Vital signs: Vital Signs Temp 97.7 F 11/11/19 04:00 Pulse 66 11/11/19 08:00 Resp 18 11/11/19 08:00 BP 131/74 11/11/19 08:00 Pulse Ox 100 11/11/19 08:00 Intake & Output 11/10/19 11/11/19 11/11/19 18:59 06:59 18:59 Intake Total 200 Output Total 420 Balance -420 200 Weight 44.5 kg Intake: IV 200 Output: Urine 420 Other: Voiding Method Toilet Toilet # Voids 1 1 1 # Bowel Movements 2 - Exam GENERAL: The patient is alert and oriented x1-2, not in any acute distress. Thin Built, cachectic female . Temp is 97.7F, pulse is 66, respirations are 18, blood pressure is 131/74, oxygen saturation is 100% on room air. HEENT PERRLA. EOMI. No scleral icterus. No conjunctival pallor. Normocephalic, atraumatic. No pharyngeal erythema. No thyromegaly. CARDIOVASCULAR: S1 and S2 present. No murmurs, rubs, or gallops. PULMONARY: Minich breath sounds bilaterally with no wheezing or crackles. ABDOMEN: Soft, nontender, nondistended, normoactive bowel sounds. No palpable organomegaly. MUSCULOSKELETAL: No joint swelling or deformity. EXTREMITIES: No cyanosis, clubbing, or pedal edema. NEUROLOGICAL: Gross neurological examination did not reveal any focal deficits. SKIN: There are multiple subcutaneous nodules a big one in the right flank area and there is another one in the chest which is more close to the skin which appears fibrocystic and there is one in the scalp with a central ulceration. Recent punch biopsy of the right upper chest nodule surgical dressing is dry with some mild shadowing present. - Labs CBC & Chem 7: 11/11/19 06:02 11/11/19 06:02 Labs: Abnormal Lab Results - Last 24 Hours (Table) 11/11/19 11/11/19 11/11/19 Range/Units 04:42 06:02 06:02 WBC 11.4 H (3.8-10.6) k/uL RDW 17.3 H (11.5-15.5) % Neutrophils # 10.2 H (1.3-7.7) k/uL Lymphocytes # 0.5 L (1.0-4.8) k/uL Sodium 133 L (137-145) mmol/L Potassium 2.8 L (3.5-5.1) mmol/L Chloride 94 L (98-107) mmol/L BUN 5 L (7-17) mg/dL Creatinine 0.20 L (0.52-1.04) mg/dL Calcium 7.5 L (8.4-10.2) mg/dL Urine Ketones 2+ H (Negative) Ur Leukocyte Esterase Small H (Negative) Urine WBC 6 H (0-5) /hpf Urine Bacteria Rare H (None) /hpf Urine Mucus Occasional H (None) /hpf Assessment and Plan Assessment: -Nausea vomiting: Most probably associated with reflux disease and patient has a hiatal hernia patient -Moderate protein calorie malnutrition with a BMI of 16.8 -Hyponatremia hypovolemic hyponatremia from severe dehydration secondary to poor by mouth intake, diuretics and nausea vomiting, improving -Hypokalemia secondary to nausea vomiting -Acute renal failure secondary to nausea vomiting -Troponin elevation nonspecific elevation not consistent with myocardial infarction -Dementia appears to be advanced and May be dementia of Alzheimer's type -Hypomagnesemia -Multiple subcutaneous nodular Fibrocystic lesions, Status post punch biopsy -Generalized deconditioning and falls -DVT prophylaxis with Lovenox Discussion and recommendations: Recommend continue current medications, management, and symptomatic treatment. Patient is currently having potassium replaced and will repeat a.m. labs. Patient underwent EGD as mentioned previously and will undergo repeat upper endoscopy with possible dilatation of esophageal stricture. Patient to continue with clear liquids at this time. Discussed with the patient's family at length about possible ECF placement and/or long-term placement with discussion of possible hospice in the near future. Case management and social work following and working on discharge planning needs and possible placement. Patient underwent punch biopsy of the right upper chest nodule yesterday and pathology is pending. Due to multiple complex medical issues, prognosis is guarded. Further recommendations to follow.
[2019-11-12] MEDS: OLANZapine 10 MG VIAL IM PRN ×2 (00:07→19:52)
[2019-11-12] MEDS: POTASSIUM CHLORIDE 10 MEQ in WATER FOR INJECTION 1 100ML.BAG IVPB SCH ×10 (00:07→23:23)
[2019-11-12] MEDS: SODIUM CHLORIDE 0.9% 1,000 ML IV SCH (00:14)
[2019-11-12 05:42] LABS: Appearance,Urine Clear (Clear); Bilirubin,Urine Negative (Negative); Blood,Urine Negative (Negative); Color,Urine Yellow; Glucose,Urine (UA) Negative (Negative); Ketones,Urine 2+ (Negative); Leukocyte Esterase,Urine Negative (Negative); Nitrite,Urine Negative (Negative); Protein,Urine Negative (Negative); Specific Gravity,Urine 1.008 (1.001-1.035); Urobilinogen,Urine <2.0 mg/dL (<2.0)
[2019-11-12 06:51] LABS: Anisocytosis Slight; Basophils % (A) 0 %; Eosinophils % (A) 1 %; HCT 32.6 % (34.0-46.0); HGB 11.1 gm/dL (11.4-16.0); Lymphocytes # (A) 0.6 k/uL (1.0-4.8); Lymphocytes % (A) 7 %; MCH 30.2 pg (25.0-35.0); MCHC 33.9 g/dL (31.0-37.0); Mean Platelet Volume 6.7; Monocytes # (A) 0.4 k/uL (0-1.0); Monocytes % (A) 5 %; Neutrophils # (A) 7.3 k/uL (1.3-7.7); Neutrophils % (A) 87 %; Platelet Count 387 k/uL (150-450); RBC 3.66 m/uL (3.80-5.40); RDW 17.5 % (11.5-15.5); WBC 8.4 k/uL (3.8-10.6)
[2019-11-12 06:56] LABS: African American GFR (CKD) >90 (>60 ml/min/1.73 sqM); Anion Gap 8 mmol/L; Blood Urea Nitrogen 6 mg/dL (7-17); Calcium 7.2 mg/dL (8.4-10.2); Carbon Dioxide 30 mmol/L (22-30); Chloride 97 mmol/L (98-107); Glucose 76 mg/dL (74-99); Non-African American GFR(CKD) >90 (>60 ml/min/1.73 sqM); Sodium 135 mmol/L (137-145)
[2019-11-12 07:02] LABS: Potassium 2.4 mmol/L (3.5-5.1)
[2019-11-12] MEDS: PANTOPRAZOLE 40 MG TABLET PO SCH (07:40)
[2019-11-12] MEDS: ENOXAPARIN 40 MG/0.4 ML SYRINGE SQ SCH (08:23)
[2019-11-12] MEDS ORDERED: IPRATROPIUM-ALBUTEROL 3 ML NEB INHALATION PRN (10:37)
[2019-11-12] MEDS: IPRATROPIUM-ALBUTEROL 3 ML NEB INHALATION SCH ×2 (11:35→19:54)
--- NOTE | 2019-11-12 12:00 | XR ---
EXAMINATION TYPE: XR chest 1V portable DATE OF EXAM: 11/12/2019 CLINICAL HISTORY: Shortness of breath. COPD. TECHNIQUE: Portable frontal view of the chest obtained. COMPARISON: Chest radiograph 11/08/2019 FINDINGS: The patient is rotated to the left, obscuring the left hemidiaphragm and left lung base. T he lungs are hyperexpanded with flattening of the hemidiaphragms. The cardiomediastinal silhouette is within normal limits for size and with rotated technique. Pulmonary vasculature is normal. There is no focal air space opacity, pleural effusion, or pneumothorax seen. There is decreased osseous minera lization and degenerative changes of the shoulders and visualized spine. IMPRESSION: 1. Examination somewhat limited due to patient rotation. No acute cardiopulmonary process. 2. Emphysematous changes.
[2019-11-12] MEDS ORDERED: Magnesium Replacement Protocol 1 EACH MISC MISCELLANE PRN (15:45)
[2019-11-12] MEDS: PANTOPRAZOLE 40 MG/10 ML VIAL IVP SCH ×2 (17:56→21:10)
[2019-11-12] MEDS: MAGNESIUM SULFATE-D5W PMX 1 GM in DEXTROSE/WATER 1 100ML.BAG IVPB SCH ×2 (19:52→21:10)
[2019-11-12] MEDS: 0.9% NACL WITH KCL 40 MEQ/L 1,000 ML IV SCH (19:58)
--- NOTE | 2019-11-12 20:21 | PN ---
PROGRESS NOTE DATE OF DICTATION: 11/12/2019 This patient is a 79-year-old pleasant white female admitted to the hospital with altered mental status, dysphagia, progressive weight loss for the last 6 months' duration. She had an upper endoscopy done by me yesterday that revealed her very dilated esophagus with significant retained food, and with difficulty I was able to advance the scope into the distal esophagus where there was a tight stricture identified. Blind biopsies were obtained, as the stricture could not be seen visually very well because of significant amount of retained food in the esophagus. She also had multiple skin nodules, for which she underwent biopsy, and pathology is still pending. Today her [id number] is at the bedside. The patient has been very lethargic; in fact, not responding to verbal stimuli. Apparently her intake has been significantly decreased. Vital signs are stable. Blood pressure is 114/67, pulse rate 76, temperature 98. HEENT examination unremarkable. Conjunctivae pink. Sclerae anicteric. Oral cavity no lesions. NECK: No JVD or lymph node enlargement. CHEST: Clear to auscultation. HEART: Regular rate and rhythm. ABDOMEN: Soft. It was slightly distended. Abdominal nodule noted. EXTREMITIES: No pedal edema. SKIN: No rashes. NEUROLOGIC: Lethargic. No focal deficits. LABS: Labs done from today show WBC 8.5, hemoglobin 11.1, platelets 387. Sodium 135, potassium 2.4. BUN and creatinine normal. IMPRESSION: 1. Severe progressive dysphagia for the last 6 months' duration. Upper endoscopy done yesterday showed dilated esophagus with significant amount of retained food with a distal esophageal stricture, status post blind biopsies. Stricture could not be dilated because of significant amount of retained food. Patient on clear liquid diet, not able to eat much because of altered mental status. 2. Multiple skin nodules, status post biopsy done by Dr. Harrington. Pathology is still pending. 3. Altered mental status. 4. History of dementia. RECOMMENDATIONS: I had a lengthy discussion with the family who is at the bedside. At this time they do not want any further endoscopic intervention. In the meantime, will await the pathology results, and based on the results further plans will be made. Will follow with you closely. Thank you for this consultation. MMODL / IJN: [id number] /
[2019-11-12] MEDS ORDERED: LORazepam 2 MG/ML INJ IV STA (22:29)
[2019-11-13] MEDS: POTASSIUM CHLORIDE 10 MEQ in WATER FOR INJECTION 1 100ML.BAG IVPB SCH ×2 (00:05→01:30)
[2019-11-13] MEDS: OLANZapine 10 MG VIAL IM PRN (04:32)
--- NOTE | 2019-11-13 05:33 | P.PN ---
Subjective Progress Note Date: 11/12/19 Principal diagnosis: 79-year-old female was born in the hospital with compensative generalized weakness and the patient has been falling and the family is unable to take care of her anymore. Patient appears to have dementia which appears to be pretty advanced which is her baseline. Patient is alert oriented 1-2. Patient denies any symptoms, patient was having nausea vomiting for about a week without any abdominal pain patient denied any chest pain. Patient does have mildly elevated troponin significant infiltrate abnormalities. Patient doesn't have any focal weakness or speech problems. Chest x-ray showed large had a little hernia and COPD. CT of the head did not show any significant abnormality although patient has a soft tissue mass on the scalp which is evident clinically. Patient is otherwise and has position. Patient was admitted in the hospital couple years ago at that time patient had a normal ejection fraction patient had the GI bleed at the time. Patient has mildly elevated troponins but stable at around 0.11, patient's EKG is showing left bundle branch block although this this left bundle branch block was not evident on the previous EKG but patient did have wide QRS complexes due to intra ventricular block. 11/10/2019 Patient is seen and evaluated in follow-up today and continues to be confused and currently has a sitter at the bedside for safety. Patient awaiting to undergo punch biopsies with surgery of a lump noted on the upper right chest. Patient continues to be agitated with advancing dementia. Patient currently denies any abdominal discomfort although continues to spit food up and have continued poor oral intake. Patient evaluated by speech pathology recommending a GI consult which was placed in pending at this time. Potassium was replaced and is currently 2.9 today. Will replace and repeat labs in the morning. P sychiatry was consulted and pending at this time as well. An echo was done and currently pending. He should denies any chest pain or shortness of breath. It is afebrile. 11/11/2019 Patient is seen and evaluated and follow-up currently sleeping but arousable. Patient continues to be confused and has a sitter at the bedside. Patient underwent punch biopsy of the right chest wall nodule with Dr. Harrington yesterday. Pathology pending. Patient underwent upper endoscopy today with GI showing a d ilated esophagus with large solid food throughout the entire esophagus and tight distal esophageal stricture with friable mucosa and biopsies were obtained. Patient will continue on a clear liquid diet and will undergo repeat upper endoscopy in 48 hours with possible dilatation of the distal esophageal stricture. Potassium continues to be low at 2.8 and will be replaced again and will repeat a.m. labs. Patient continues to have poor oral intake and will be monitored closely. Discussed with the patient's family about possible placement and further discussions of hospice. Family is to meet with hospice for an informational meeting. Case management and social work following closely to [facility] with discharge planning needs and possible ECF placement at [facility]. Psychiatry also following and adjustments to medications have been made. Patient to continue on Zyprexa along with Seroquel. Review of systems: Constitutional: Reports fatigue, no reports of fevers or chills Cardiovascular: No reports of chest pain or palpitations Respiratory: No reports of shortness of breath, reports occasional cough GI: No reports of nausea or vomiting : No reports of dysuria or retention Neurovascular: Reports weakness with no reports of numbness 11/12/2019 Patient is seen and evaluated in follow up today and continues to be confused and is quite lethargic. Patient is being closely monitored. Family at the bedside and a discussion was had about the treatment plan. Patient's family would like to await biopsy results of the recent punch biopsy done on the skin nodules to determine next course of treatment. Multiple medical consultations following. Patient is currently on a clear liquid diet although has had a steady decline in oral intake and has minimal intake at this time. GI underwent upper endoscope recently finding large amounts of lodged food in the esophagus with the inability to visualize the stricture and suggested possible dilatation although family would like to wait at this time as mentioned previously. Patients potassium found to be critically low at 2.4 today and is being replaced. IV fluids transitioned to 0.9NS with 40 KCL. Most recent chest xray shows no acute cardiopulmonary process with acute emphysematous changes noted. Patient was also initiated on breathing inhalation treatments. Will continue to monitor closely. Review of systems: Unable to obtain given confusion and extreme lethargy Active Medications Albuterol/Ipratropium (Duoneb 0.5 Mg-3 Mg/3 Ml Soln) 3 ml INHALATION RT-TID PRN PRN Reason: Shortness Of Breath Or Wheezing Albuterol/Ipratropium (Duoneb 0.5 Mg-3 Mg/3 Ml Soln) 3 ml INHALATION RT-TID [facility] Last Admin: 11/12/19 11:35 Dose: 3 ml Documented by: Enoxaparin Sodium (Lovenox) 40 mg SQ DAILY [facility] Last Admin: 11/12/19 08:23 Dose: 40 mg Documented by: Potassium Chloride/Sodium Chloride (Ns-Kcl 40 Meq/L Iv Solution) 1,000 mls @ 100 mls/hr IV .Q10H [facility] Miscellaneous Information (Potassium Per Protocol) 1 each MISCELLANE DAILY PRN; Protocol PRN Reason: Per Protocol Miscellaneous Information (Magnesium Per Protocol) 1 each MISCELLANE DAILY PRN; Protocol PRN Reason: Per Protocol Olanzapine (Zyprexa) 2.5 mg IM Q6HR PRN PRN Reason: Agitation or Acute Psychosis Last Admin: 11/12/19 00:07 Dose: 2.5 mg Documented by: Pantoprazole Sodium (Protonix) 40 mg IVP BID [facility] Quetiapine Fumarate (Seroquel) 25 mg PO BID PRN PRN Reason: Agitation or Acute Anxiety Last Admin: 11/10/19 19:58 Dose: 25 mg Documented by: Ropinirole HCl (Requip) 2 mg PO HS [facility] Last Admin: 11/11/19 19:47 Dose: Not Given Documented by: Objective - Vital Signs Vital signs: Vital Signs Temp 97.8 F 11/12/19 04:00 Pulse 87 11/12/19 11:48 Resp 16 11/12/19 08:00 BP 101/43 11/12/19 08:00 Pulse Ox 99 11/12/19 04:00 Intake & Output 11/11/19 11/12/19 11/12/19 18:59 06:59 18:59 Intake Total 436 200 Output Total 1170 Balance 436 -1170 200 Weight 44.5 kg 42.6 kg Intake: IV 200 Intake, IV Titration 200 Amount Potassium Chloride 10 meq 200 In Water For Injection 1 100ml.bag @ 100 mls/hr IVPB Q1HR [facility] Rx#: [id number] Oral 236 0 Output: Urine 1170 Straight 1050 Other: Voiding Method Toilet # Voids 1 1 0 # Bowel Movements 0 - Exam GENERAL: The patient is lethargic, but arousable, confused, alert and oriented x1-2. Thin Built, cachectic female . Temp is 97.8F, pulse is 79, respirations are 16, blood pressure is 123/78, oxygen saturation is 99% on room air. HEENT PERRLA. EOMI. No scleral icterus. No conjunctival pallor. Normocephalic, atraumatic. No pharyngeal erythema. No thyromegaly. CARDIOVASCULAR: S1 and S2 present. No murmurs, rubs, or gallops. PULMONARY: Diminished breath sounds bilaterally with no wheezing or crackles. ABDOMEN: Soft, nontender, nondistended, normoactive bowel sounds. No palpable organomegaly. MUSCULOSKELETAL: No joint swelling or deformity. EXTREMITIES: No cyanosis, clubbing, or pedal edema. NEUROLOGICAL: Gross neurological examination did not reveal any focal deficits. SKIN: There are multiple subcutaneous nodules a big one in the right flank area and there is another one in the chest which is more close to the skin which appears fibrocystic and there is one in the scalp with a central ulceration. Recent punch biopsy of the right upper chest nodule surgical dressing is dry with some mild shadowing present. - Labs CBC & Chem 7: 11/12/19 06:18 11/12/19 21:04 Labs: Abnormal Lab Results - Last 24 Hours (Table) 11/12/19 11/12/19 11/12/19 Range/Units 05:01 06:18 06:18 RBC 3.66 L (3.80-5.40) m/uL Hgb 11.1 L (11.4-16.0) gm/dL Hct 32.6 L (34.0-46.0) % RDW 17.5 H (11.5-15.5) % Lymphocytes # 0.6 L (1.0-4.8) k/uL Sodium 135 L (137-145) mmol/L Potassium 2.4 L* (3.5-5.1) mmol/L Chloride 97 L (98-107) mmol/L BUN 6 L (7-17) mg/dL Creatinine 0.29 L (0.52-1.04) mg/dL Calcium 7.2 L (8.4-10.2) mg/dL Magnesium (1.6-2.3) mg/dL Urine Ketones 2+ H (Negative) 11/12/19 Range/Units 06:18 RBC (3.80-5.40) m/uL Hgb (11.4-16.0) gm/dL Hct (34.0-46.0) % RDW (11.5-15.5) % Lymphocytes # (1.0-4.8) k/uL Sodium (137-145) mmol/L Potassium (3.5-5.1) mmol/L Chloride (98-107) mmol/L BUN (7-17) mg/dL Creatinine (0.52-1.04) mg/dL Calcium (8.4-10.2) mg/dL Magnesium 1.5 L (1.6-2.3) mg/dL Urine Ketones (Negative) Assessment and Plan Assessment: -Nausea vomiting: Most probably associated with reflux disease and patient has a hiatal hernia patient -Moderate protein calorie malnutrition with a BMI of 16.8 -Hyponatremia hypovolemic hyponatremia from severe dehydration secondary to poor by mouth intake, diuretics and nausea vomiting, improving -Hypokalemia secondary to nausea vomiting -Acute renal failure secondary to nausea vomiting -Troponin elevation nonspecific elevation not consistent with myocardial infarction -Dementia appears to be advanced and May be dementia of Alzheimer's type -Hypomagnesemia -Multiple subcutaneous nodular Fibrocystic lesions, Status post punch biopsy -Generalized deconditioning and falls -DVT prophylaxis with Lovenox Discussion and recommendations: Recommend continue current medications, management, and symptomatic treatment. Patient is currently having potassium replaced and will repeat a.m. labs. IV fluids transitioned to 0.9NS with 40 KCL. Patient remains on clear liquid diet although continues to have poor oral intake. Discussed with the patient's family at length about possible ECF placement and/or long-term placement with discussion of possible hospice in the near future. Family would like to await biopsy results before determining further treatment options. Case management and social work following and working on discharge planning needs and possible placement. Patient underwent punch biopsy of the right upper chest nodule and pathology is pending. Due to multiple complex medical issues, prognosis is guarded. Further recommendations to follow.
[2019-11-13] MEDS: 0.9% NACL WITH KCL 40 MEQ/L 1,000 ML IV SCH ×2 (06:47→18:48)
[2019-11-13 07:17] LABS: Anisocytosis Slight; HCT 30.8 % (34.0-46.0); HGB 10.1 gm/dL (11.4-16.0); MCH 28.8 pg (25.0-35.0); MCHC 32.8 g/dL (31.0-37.0); MCV 87.7 fL (80.0-100.0); Mean Platelet Volume 6.6; Platelet Count 381 k/uL (150-450); RBC 3.51 m/uL (3.80-5.40); RDW 17.5 % (11.5-15.5); WBC 7.5 k/uL (3.8-10.6)
[2019-11-13 07:25] LABS: African American GFR (CKD) >90 (>60 ml/min/1.73 sqM); Anion Gap 7 mmol/L; Blood Urea Nitrogen 8 mg/dL (7-17); Calcium 7.1 mg/dL (8.4-10.2); Carbon Dioxide 28 mmol/L (22-30); Chloride 100 mmol/L (98-107); Glucose 91 mg/dL (74-99); Magnesium 1.8 mg/dL (1.6-2.3); Non-African American GFR(CKD) >90 (>60 ml/min/1.73 sqM); Potassium 3.6 mmol/L (3.5-5.1); Sodium 135 mmol/L (137-145)
[2019-11-13] MEDS: IPRATROPIUM-ALBUTEROL 3 ML NEB INHALATION SCH ×3 (08:21→15:59)
[2019-11-13] MEDS: PANTOPRAZOLE 40 MG/10 ML VIAL IVP SCH (09:24)
[2019-11-13] MEDS: ENOXAPARIN 40 MG/0.4 ML SYRINGE SQ SCH (09:24)
--- NOTE | 2019-11-13 10:05 | XR ---
EXAMINATION TYPE: XR chest 1V portable DATE OF EXAM: 11/13/2019 COMPARISON: 11/12/2019 HISTORY: Shortness of breath TECHNIQUE: Single frontal view of the chest is obtained. FINDINGS: Bilateral consolidation and pleural effusion greater on the left. Diffuse osteopenia and a rthropathy shoulders. Atherosclerotic change aorta. Coarsened interstitium. Underlying COPD suspected . Scoliosis of the spine. IMPRESSION: 1. Bilateral infiltrate and pleural effusion increasing and greater on the left. Underlying CHF or pn eumonia not excluded.
[2019-11-13 11:08] VITALS: BMI 18.7
[2019-11-13 16:32] VITALS: TEMP 98.6
[2019-11-13 17:42] VITALS: BP 138/60; PULSE 98; RESP 22
--- NOTE | 2019-11-13 18:34 | PN ---
PROGRESS NOTE DATE OF DICTATION: 11/13/2019 This patient is a 79-year-old white female admitted to the hospital with severe dysphagia and progressive weight loss. Upper endoscopy done 2 days ago did show dilated esophagus with significant food debris and a distal esophageal tight stricture. Biopsies were done and are still pending. In the meantime, her overall condition has deteriorated and the family had a discussion and are planning on consulting hospice today. PHYSICAL EXAMINATION: She is very lethargic. Vital signs show a blood pressure of 132/80, pulse rate 104, temperature 98.6. HEENT examination unremarkable. Conjunctivae pink. Sclerae anicteric. NECK: No JVD or lymph node enlargement. CHEST: Clear to auscultation. HEART: Regular rate and rhythm. ABDOMEN: Anterior abdominal wall nodule noted. EXTREMITIES: No pedal edema. NEUROLOGIC: Lethargic. LABS: WBC 7.5, hemoglobin 10.3, platelets 381. IMPRESSION: 1. Progressive dysphagia to solids and weight loss of 30 pounds in the last 6 months' duration. Recent upper endoscopy revealed dilated esophagus with solid food noted with a tight distal esophageal stricture. Biopsies are still pending. 2. Anterior abdominal wall nodule, status post punch biopsy. Results are pending. 3. Altered mental status. 4. History of dementia. RECOMMENDATIONS: I had a discussion with the patient's nursing staff today. Apparently hospice has been consulted for further management. At this time we will sign off. Please call us if needed. Thank you for this consultation. MMPRAKASHL / IJN: [id number] /
--- NOTE | 2019-11-13 21:56 | P.PN ---
Subjective Progress Note Date: 11/13/19 Principal diagnosis: 79-year-old female was born in the hospital with compensative generalized weakness and the patient has been falling and the family is unable to take care of her anymore. Patient appears to have dementia which appears to be pretty advanced which is her baseline. Patient is alert oriented 1-2. Patient denies any symptoms, patient was having nausea vomiting for about a week without any abdominal pain patient denied any chest pain. Patient does have mildly elevated troponin significant infiltrate abnormalities. Patient doesn't have any focal weakness or speech problems. Chest x-ray showed large had a little hernia and COPD. CT of the head did not show any significant abnormality although patient has a soft tissue mass on the scalp which is evident clinically. Patient is otherwise and has position. Patient was admitted in the hospital couple years ago at that time patient had a normal ejection fraction patient had the GI bleed at the time. Patient has mildly elevated troponins but stable at around 0.11, patient's EKG is showing left bundle branch block although this this left bundle branch block was not evident on the previous EKG but patient did have wide QRS complexes due to intra ventricular block. 11/10/2019 Patient is seen and evaluated in follow-up today and continues to be confused and currently has a sitter at the bedside for safety. Patient awaiting to undergo punch biopsies with surgery of a lump noted on the upper right chest. Patient continues to be agitated with advancing dementia. Patient currently denies any abdominal discomfort although continues to spit food up and have continued poor oral intake. Patient evaluated by speech pathology recommending a GI consult which was placed in pending at this time. Potassium was replaced and is currently 2.9 today. Will replace and repeat labs in the morning. P sychiatry was consulted and pending at this time as well. An echo was done and currently pending. He should denies any chest pain or shortness of breath. It is afebrile. 11/11/2019 Patient is seen and evaluated and follow-up currently sleeping but arousable. Patient continues to be confused and has a sitter at the bedside. Patient underwent punch biopsy of the right chest wall nodule with Dr. Harrington yesterday. Pathology pending. Patient underwent upper endoscopy today with GI showing a d ilated esophagus with large solid food throughout the entire esophagus and tight distal esophageal stricture with friable mucosa and biopsies were obtained. Patient will continue on a clear liquid diet and will undergo repeat upper endoscopy in 48 hours with possible dilatation of the distal esophageal stricture. Potassium continues to be low at 2.8 and will be replaced again and will repeat a.m. labs. Patient continues to have poor oral intake and will be monitored closely. Discussed with the patient's family about possible placement and further discussions of hospice. Family is to meet with hospice for an informational meeting. Case management and social work following closely to [facility] with discharge planning needs and possible ECF placement at [facility]. Psychiatry also following and adjustments to medications have been made. Patient to continue on Zyprexa along with Seroquel. Review of systems: Constitutional: Reports fatigue, no reports of fevers or chills Cardiovascular: No reports of chest pain or palpitations Respiratory: No reports of shortness of breath, reports occasional cough GI: No reports of nausea or vomiting : No reports of dysuria or retention Neurovascular: Reports weakness with no reports of numbness 11/12/2019 Patient is seen and evaluated in follow up today and continues to be confused and is quite lethargic. Patient is being closely monitored. Family at the bedside and a discussion was had about the treatment plan. Patient's family would like to await biopsy results of the recent punch biopsy done on the skin nodules to determine next course of treatment. Multiple medical consultations following. Patient is currently on a clear liquid diet although has had a steady decline in oral intake and has minimal intake at this time. GI underwent upper endoscope recently finding large amounts of lodged food in the esophagus with the inability to visualize the stricture and suggested possible dilatation although family would like to wait at this time as mentioned previously. Patients potassium found to be critically low at 2.4 today and is being replaced. IV fluids transitioned to 0.9NS with 40 KCL. Most recent chest xray shows no acute cardiopulmonary process with acute emphysematous changes noted. Patient was also initiated on breathing inhalation treatments. Will continue to monitor closely. 11/13/2019 Patient is seen in follow up and is extremely lethargic and currently maintained on high flow Airvo. Patient is being closely monitored. Patient respiratory status and condition continued to deteriorate. Chest xray today shows bilateral pleural effusions and infiltrates that have increased. Patient oral intake is poor. Family at the bedside requesting a hospice consult as they want the patient to be made comfortable. Case management following and referral was placed for hospice. Will continue to monitor closely. Review of systems: Unable to obtain given confusion and extreme lethargy Objective - Vital Signs Vital signs: Vital Signs Temp 98.6 F 11/13/19 12:00 Pulse 104 H 11/13/19 12:00 Resp 20 11/13/19 12:00 BP 144/80 11/13/19 12:00 Pulse Ox 91 L 11/13/19 15:55 Intake & Output 11/12/19 11/13/19 11/13/19 18:59 06:59 18:59 Intake Total 200 240 Output Total 1200 Balance 200 -1200 240 Weight 49.5 kg 49.5 kg Intake: Intake, IV Titration 200 Amount Potassium Chloride 10 meq 200 In Water For Injection 1 100ml.bag @ 100 mls/hr IVPB Q1HR CHERIE Rx#: [id number] Oral 0 240 Output: Urine 1200 Straight 750 Uretheral (Joseph) 450 Other: Voiding Method Toilet Toilet # Voids 0 # Bowel Movements 0 - Exam GENERAL: The patient is lethargic, but arousable, confused, alert and oriented x1-2. Thin Built, cachectic female . Temp is 98.0F, pulse is 120, respirations are 18, blood pressure is 110/74, oxygen saturation is 85 % on room air. Patient was placed on high flow airvo at 60% O2 and FiO2 of 94 and oxygen saturation went up to 91% HEENT PERRLA. EOMI. No scleral icterus. No conjunctival pallor. Normocephalic, atraumatic. No pharyngeal erythema. No thyromegaly. oral mucosa is dry. CARDIOVASCULAR: S1 and S2 present. No murmurs, rubs, or gallops. PULMONARY: Diminished breath sounds bilaterally with some scattered rhonchi and crackles noted. ABDOMEN: Soft, nontender, nondistended, normoactive bowel sounds. No palpable organomegaly. MUSCULOSKELETAL: No joint swelling or deformity. EXTREMITIES: No cyanosis, clubbing, or pedal edema. NEUROLOGICAL: Gross neurological examination did not reveal any focal deficits. SKIN: There are multiple subcutaneous nodules a big one in the right flank area and there is another one in the chest which is more close to the skin which appears fibrocystic and there is one in the scalp with a central ulceration. Recent punch biopsy of the right upper chest nodule surgical dressing is dry with some mild shadowing present. - Labs CBC & Chem 7: 11/13/19 06:38 11/13/19 06:38 Labs: Abnormal Lab Results - Last 24 Hours (Table) 11/12/19 11/13/19 11/13/19 Range/Units 21:04 06:38 06:38 RBC 3.51 L (3.80-5.40) m/uL Hgb 10.1 L (11.4-16.0) gm/dL Hct 30.8 L (34.0-46.0) % RDW 17.5 H (11.5-15.5) % Sodium 135 L (137-145) mmol/L Potassium 3.0 L (3.5-5.1) mmol/L Creatinine 0.24 L (0.52-1.04) mg/dL Calcium 7.1 L (8.4-10.2) mg/dL Assessment and Plan Assessment: -Nausea vomiting: Most probably associated with reflux disease and patient has a hiatal hernia patient -Moderate protein calorie malnutrition with a BMI of 16.8 -Hyponatremia hypovolemic hyponatremia from severe dehydration secondary to poor by mouth intake, diuretics and nausea vomiting, improving -Hypokalemia secondary to nausea vomiting -Acute renal failure secondary to nausea vomiting -Troponin elevation nonspecific elevation not consistent with myocardial infarction -Dementia appears to be advanced and May be dementia of Alzheimer's type -Hypomagnesemia -Multiple subcutaneous nodular Fibrocystic lesions, Status post punch biopsy -Generalized deconditioning and falls -DVT prophylaxis with Lovenox -No code, no CPR, no vent Discussion and recommendations: Recommend continue current medications, management, and symptomatic treatment. Patient family awaiting to meet with hospice and make patient comfortable. Due to multiple complex medical issues, prognosis is extremely guarded. Further recommendations to follow.
--- NOTE | 2019-11-17 10:36 | CDI ---
Documentation Clarification Form Date: 11/17/19 From: Tami Garcia CCS Phone: If you have a question about this query, please contact Kelsi Stein, Foundry Worker Apprentice at [phone] between 8am and 5pm. Admit Date: 11/08/19 Discharge Date:11/13/19 Patient Name: Marisa Gutiérrez Visit Number: [id number] ATTENTION: The Clinical Documentation Specialists (CDI) and [facility] Coding Staff appreciate your assistance in clarifying documentation. Please respond to the clarification below the line at the bottom and electronically sign. The CDI & [facility] Coding staff will review the response and follow-up if needed. Please note: Queries are made part of the Legal Health Record. If you have any questions, please contact the author of this message via ITS. Dear Dr. 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 Documentation states: Multiple subcutaneous nodular Fibrocystic lesions Patient history/risk factors: Malnutrition, FRANKIE, Esophageal stricture, Hyponatremia, HX tobacco Clinical Indicators: Multiple subcutaneous nodular Fibrocystic lesions, Malnutrition Treatment: Biopsy, Patient D/C to Hospice In your professional opinion, do you agree with/acknowledge the pathology report Diagnosis that specifies the nodules as metastatic adenocarcinoma consistent with pancreatobiliary or upper GI primary? Yes No Other (please specify) Unable to determine Unable to determine MTDD
--- NOTE | 2019-11-17 10:51 | CDI ---
Documentation Clarification Form Date: 11/17/19 From: Tami Garcia CCS Phone: If you have a question about this query, please contact Kelsi Stein, Clinical Psychology Teacher at [phone] between 8am and 5pm. Admit Date: 11/08/19 Discharge Date:11/13/19 Patient Name: Marisa Gutiérrez Visit Number: [id number] ATTENTION: The Clinical Documentation Specialists (CDI) and [facility] Coding Staff appreciate your assistance in clarifying documentation. Please respond to the clarification below the line at the bottom and electronically sign. The CDI & [facility] Coding staff will review the response and follow-up if needed. Please note: Queries are made part of the Legal Health Record. If you have any questions, please contact the author of this message via ITS. Dear Dr. Tyler, Progress note 11/12 documents: Chest xray today shows bilateral pleural effusions and infiltrates that have increased. History/Risk Factors: Esophageal stricture, FRANKIE, Malnutrition, Dementia, HTN, COPD Clinical Indicators: Shortness of breath Lab findings: BNP 1,710 C-Xray: 11/12- Bilateral infiltrate and pleural effusion increasing and greater on the left.Underlying CHF or pneumonia not excluded. ECHO: Overall left ventricular systolic function is mild-moderately impaired with, an EF between 40 - 45 % Treatment: Transfer to hospice In your professional opinion, can you please clarify bilateral pleural effusions and infiltrates that have increased? Pneumonia CHF chronic diastolic CHF acute diastolic CHF chronic systolic CHF acute systolic CHF chronic systolic/diastolic CHF acute systolic/diastolic Pleural effusions Other, please specify Unable to determine CHF chronic systolic MTDD
--- NOTE | 2019-11-23 04:06 | DS ---
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 Other diagnoses are: 1. Possible esophageal obstruction. 2. Moderate protein calorie malnutrition. 3. Hyponatremia, hypovolemic. 4. Change in mental status, metabolic encephalopathy. 5. Nausea, vomiting, possibly hiatal hernia. 6. Hypokalemia. 7. Acute renal failure, acute tubular necrosis. 8. Troponin elevation, not consistent with myocardial infarction. 9. Dementia, Alzheimer's type. 10.Hypomagnesemia. 11.Multiple subcutaneous nodules. 12.Generalized gait dysfunction, falls. 13.NO CODE, NO CPR, NO VENT. 14.Comfort measures. HISTORY OF PRESENT ILLNESS: This 79-year-old woman with a past medical history of multiple medical problems admitted with multiple symptomatology as mentioned earlier. Patient was found to have multiple subcutaneous nodules. Biopsy came back as positive for metastatic adenocarcinoma and the patient also had multiple other medical issues. EGD by Dr. Moya showed esophagus with large solid food throughout the entire esophagus and tight distal esophageal stricture, but the biopsies are negative, but however the patient was treated symptomatically, but the patient's condition got worse. During the hospitalization comfort measures proceeded and the patient because of above mentioned multiple medical issues. The prognosis remained extremely guarded throughout the hospital stay. Please refer to the multiple progress notes and consultation notes and staff notes for further details. Discussion was held with multiple family members and the family opted for hospice measures. Please refer to further notes for information. MMODL / IJN: [id number] / WOO
== END 2019-11-13 19:16 | disposition hospice, inpatient (51) | DRG 391 ==
LOC: EC 16:22 → 3SCARD 19:29 → 3NCARDOBS 11-11 22:01 → 3SCARD 11-11 22:01
PROVIDERS: ADMIT Internal Medicine; ATTEND Internal Medicine
PROC: 0HB7XZX Excision of Abdomen Skin, External Approach, Diagnostic (ICD-10-PCS; 2019-11-10)
PROC: 0DB38ZX Excision of Lower Esophagus, Via Natural or Artificial Opening Endoscopic, Diagnostic (ICD-10-PCS; principal; 2019-11-11 07:30)
DX: K22.2 Esophageal obstruction (principal); G93.41 Metabolic encephalopathy; N17.0 Acute kidney failure with tubular necrosis; E44.0 Moderate protein-calorie malnutrition; F02.81 Dementia in other diseases classified elsewhere, unspecified severity, with behavioral disturbance; R64 Cachexia; C79.89 Secondary malignant neoplasm of other specified sites; E87.1 Hypo-osmolality and hyponatremia; I50.22 Chronic systolic (congestive) heart failure; Z68.1 Body mass index [BMI] 19.9 or less, adult; F23 Brief psychotic disorder; Z11.59 Encounter for screening for other viral diseases; Z66 Do not resuscitate; Z51.5 Encounter for palliative care; G30.9 Alzheimer's disease, unspecified; I11.0 Hypertensive heart disease with heart failure; C26.9 Malignant neoplasm of ill-defined sites within the digestive system; J44.9 Chronic obstructive pulmonary disease, unspecified; L98.499 Non-pressure chronic ulcer of skin of other sites with unspecified severity; I83.90 Asymptomatic varicose veins of unspecified lower extremity; F41.9 Anxiety disorder, unspecified; I44.7 Left bundle-branch block, unspecified; E87.6 Hypokalemia; E83.42 Hypomagnesemia; K44.9 Diaphragmatic hernia without obstruction or gangrene; R79.89 Other specified abnormal findings of blood chemistry; K21.9 Gastro-esophageal reflux disease without esophagitis; E86.1 Hypovolemia; R13.10 Dysphagia, unspecified; E86.0 Dehydration; R40.2362 Coma scale, best motor response, obeys commands, at arrival to emergency department; R40.2142 Coma scale, eyes open, spontaneous, at arrival to emergency department; R40.2242 Coma scale, best verbal response, confused conversation, at arrival to emergency department; R11.2 Nausea with vomiting, unspecified; R00.0 Tachycardia, unspecified; G47.00 Insomnia, unspecified; Z71.3 Dietary counseling and surveillance; Z79.899 Other long term (current) drug therapy; Z87.19 Personal history of other diseases of the digestive system; Z87.891 Personal history of nicotine dependence; Z91.81 History of falling; Z88.0 Allergy status to penicillin
CPT/HCPCS: 36415; 43239; 70450; 71045; 71046; 80048; 80053; 81001; 81003; 83605; 83735; 83880; 84132; 84443; 84484; 85025; 85027; 85610; 85730; 87040; 88305; 88312; 88341; 88342; 93005; 93306; 94640; 94760; 96361; 96365; 96368; 99285

== ENCOUNTER 2019-11-13 16:23 | Inpatient (IN) | payer MEDICAID ==
[2019-11-13] MEDS ORDERED: ACETAMINOPHEN SUPPOSITORY 650 MG SUPP RECTAL PRN (16:24)
[2019-11-13] MEDS ORDERED: ONDANSETRON 4 MG/2 ML VIAL IVP PRN (16:24)
[2019-11-13] MEDS ORDERED: LORazepam 2 MG/ML INJ IV PRN (16:24)
[2019-11-13] MEDS ORDERED: SCOPOLAMINE 1.5MG/72HR PATCH TRANSDERM PRN (17:00)
[2019-11-13] MEDS ORDERED: ATROPINE OPHTH SOLN 1% 5ML BTL SUBLINGUAL PRN (17:00)
[2019-11-13] MEDS: MORPHINE SULFATE 4 MG/ML SYRINGE IV PRN (19:33)
[2019-11-14] MEDS: MORPHINE SULFATE 4 MG/ML SYRINGE IV PRN (00:59)
[2019-11-14 03:28] VITALS: RESP 24
--- NOTE | 2019-11-14 08:44 | P.HPIM ---
History of Present Illness This is a pleasant 79 years old female with multiple medical problems as below, she is admitted to hospice. She has advanced dementia, acute renal failure, electrolyte abnormality, protein calorie malnutrition and nausea vomiting. Patient currently lying in bed comfortable. Patient cannot provide information. She is failure to thrive, electrode abnormality that is what she wasn't telemetry unit, he was losing weight. Review of Systems n/a Past Medical History Past Medical History: Blood Disorder, GI Bleed, Hypertension, Vascular Disorder Additional Past Medical History / Comment(s): anemia and vericose veins History of Any Multi-Drug Resistant Organisms: None Reported Past Surgical History: No Surgical Hx Reported Past Anesthesia/Blood Transfusion Reactions: No Reported Reaction Past Psychological History: Anxiety Smoking Status: Former smoker Past Alcohol Use History: None Reported Past Drug Use History: None Reported - Past Family History Mother Family Medical History: No Reported History Father Family Medical History: No Reported History Medications and Allergies Home Medications Medication Instructions Recorded Confirmed Type No Known Home Medications 11/09/19 11/09/19 History Allergies Allergy/AdvReac Type Severity Reaction Status Date / Time Penicillins Allergy Unknown Verified 11/09/19 15:49 Physical Exam Vitals: Vital Signs Pulse Resp 11/14/19 03:27 107 H 24 11/13/19 21:45 116 H 28 H Intake and Output 11/13/19 11/14/19 11/14/19 22:59 06:59 14:59 Output Total 25 Balance -25 Output: Urine 25 Other: Weight 49.5 kg 42 kg -GENERAL: The patient is obtunded, cachectic HEENT: Pupils are round and equally reacting to light. EOMI. No scleral icterus. No conjunctival pallor. Normocephalic, atraumatic. No pharyngeal erythema. No thyromegaly. CARDIOVASCULAR: S1 and S2 present. No murmurs, rubs, or gallops. PULMONARY: Chest is clear to auscultation, no wheezing or crackles. ABDOMEN: Soft, nontender, nondistended, normoactive bowel sounds. No palpable organomegaly. MUSCULOSKELETAL: No joint swelling or deformity. EXTREMITIES: No cyanosis, clubbing, or pedal edema. NEUROLOGICAL: Gross neurological examination did not reveal any focal deficits. SKIN: No rashes. No petechiae Assessment and Plan Assessment: -End stage disease, already placed on hospice care -Nausea vomiting: Most probably associated with reflux disease and patient has a hiatal hernia patient -Moderate protein calorie malnutrition with a BMI of 16.8 -Hyponatremia hypovolemic hyponatremia from severe dehydration secondary to poor by mouth intake, diuretics and nausea vomiting, improving -Hypokalemia secondary to nausea vomiting -Acute renal failure secondary to nausea vomiting -Troponin elevation nonspecific elevation not consistent with myocardial infarction -Dementia appears to be advanced and May be dementia of Alzheimer's type -Hypomagnesemia -Multiple subcutaneous nodular Fibrocystic lesions, Status post punch biopsy -Generalized deconditioning and falls -DVT prophylaxis with Lovenox -No code, no CPR, no vent
[2019-11-14 09:14] VITALS: BP 54/31; PULSE 112; TEMP 98.8
== END 2019-11-14 13:32 | disposition expired | DRG 951 ==
LOC: 3SCARD 19:27
PROVIDERS: ADMIT Hospitalist; ATTEND Hospitalist
DX: Z51.5 Encounter for palliative care (principal); N18.6 End stage renal disease; E44.0 Moderate protein-calorie malnutrition; Z68.1 Body mass index [BMI] 19.9 or less, adult; E87.1 Hypo-osmolality and hyponatremia; I12.0 Hypertensive chronic kidney disease with stage 5 chronic kidney disease or end stage renal disease; N17.9 Acute kidney failure, unspecified; E83.42 Hypomagnesemia; E86.0 Dehydration; E86.1 Hypovolemia; E87.6 Hypokalemia; E87.8 Other disorders of electrolyte and fluid balance, not elsewhere classified; F03.90 Unspecified dementia, unspecified severity, without behavioral disturbance, psychotic disturbance, mood disturbance, and anxiety; F41.9 Anxiety disorder, unspecified; K21.9 Gastro-esophageal reflux disease without esophagitis; K44.9 Diaphragmatic hernia without obstruction or gangrene; R62.7 Adult failure to thrive; Z87.891 Personal history of nicotine dependence; Z87.19 Personal history of other diseases of the digestive system; R11.2 Nausea with vomiting, unspecified